=== PATIENT | female | born 1975 | race African-American/Black ===

== ENCOUNTER 2024-01-30 11:00 | Outpatient (AMB) | payer OTHER, SELFPAY ==
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
[2024-01-30 11:08] VITALS: BP 122/84; PULSE 85; O2SAT 98; BMI 21.7
== END 2024-01-30 12:23 | disposition home or self-care (01) ==
PROVIDERS: PCP Internal Medicine; Visit Provider Nurse Practitioner Family
DX: R51.9 Headache, unspecified (principal); G43.829 Menstrual migraine, not intractable, without status migrainosus; G43.109 Migraine with aura, not intractable, without status migrainosus
CPT/HCPCS: 99204

== ENCOUNTER → 2024-01-30 11:00 | Outpatient (BNVA) | payer OTHER, SELFPAY | PROVIDERS: PCP Internal Medicine; Visit Provider Nurse Practitioner Family ==

== ENCOUNTER 2024-03-18 13:29 | Outpatient (REF) | payer OTHER, SELFPAY ==
--- NOTE | ~2024-03-18 | MR_ITS ---
EXAMINATION: MR BRAIN WITHOUT CONTRAST CLINICAL INFORMATION: Headache. COMPARISON: None TECHNIQUE: Multiplanar multisequence MR imaging of the brain was obtained without intravenous contrast. FINDINGS: There is no acute infarct on diffusion-weighted imaging. There is no intracranial hemorrhage on iron-sensitive imaging. No extra-axial collection or mass effect/herniation. There are multiple scattered small foci of T2/FLAIR hyperintense signal in the supratentorial white matter, predominantly involving the frontal lobes. No hydrocephalus. The ventricles are normal in morphology and size. The major flow voids at the skull base are preserved. The midline structures are normal. The cerebellar tonsils are normally positioned. The craniocervical junction is normal. Marrow signal is within normal limits. The visualized soft tissues are without significant abnormality. No signal abnormality within the paranasal sinuses or within the mastoid air cells. MR/MR head/brain wo con IMPRESSION: Multiple scattered small foci of T2/FLAIR hyperintense signal in the supratentorial and predominantly bifrontal white matter are nonspecific but can be seen in the setting of migraine. Otherwise unremarkable noncontrast MRI of the brain. Electronically signed by: Darnell Rios MD 04/01/2024 07:00 PM EDT
== END 2024-03-18 13:30 | disposition home or self-care (01) ==
LOC: HO.MRI 13:29
PROVIDERS: Visit Provider Nurse Practitioner Family
DX: R51.9 Headache, unspecified (principal)
CPT/HCPCS: 70551

== ENCOUNTER 2025-07-13 11:59 | Outpatient (AMB) | payer OTHER, SELFPAY ==
--- OUTSIDE RECORDS SUMMARY | 2024-07-30 06:00 | XMS_ITS ---
Author Organization [facility] [address] Address [address] [place] [address] Care Team Providers Care Mail Clerk Name Role Phone GENARO CERVANTES Unavailable [phone] Encounters Encounter Location Date Provider Diagnosis [facility] [address] [address] 07/30/2024 GENARO CERVANTES Plan Of Treatment No Information Progress Notes * Crystal MUNOZDOB:1975 (49 yo F)Acc No.[id number]:07/30/2024 Progress Notes Patient: Ruben Vanessaye Provider: Isidoro CERVANTES PA-C :1975 A ge:48 Y S ex:Female Date:07/30/2024 Address:[address] [place] [address], [id number] Care Plan Details* * Electronic signature of DULCE CERVANTES PA-C on 07/13/2025 at 04:02 PM EST Sign off status: Pending * Provider: Isidoro CERVANTES PA-C Date: 0 07/30/2024 Generated for Yenny cifuentes/Kimber/eTransmitting on: 1 04:02 PM EST
--- OUTSIDE RECORDS SUMMARY | 2024-11-24 06:00 | XMS_ITS ---
Author Organization [facility] [address] Address [address] [place] [address] Care Team Providers Care Ambulance Driver Paramedic Name Role Phone GENARO CERVANTES Unavailable [phone] REASON FOR VISIT potassium & migraines Encounters Encounter Location Date Provider Diagnosis [facility] [address] [address] 11/24/2024 GENARO CERVANTES Plan Of Treatment No Information Progress Notes * Crystal MUNOZDOB:1975 (49 yo F)Acc No.[id number]:11/24/2024 Progress Notes Patient: Ruben Vanessaye Provider: Isidoro CERVANTES PA-C :1975 A ge:49 Y S ex:Female Date:11/24/2024 Address:[address] [place] [address], [id number] Subjective: * Chief Complaints: * P otassium & migraines Care Plan Details* * Electronic signature of DULCE CERVANTES PA-C on 07/13/2025 at 04:02 PM EST Sign off status: Pending * Provider: Isidoro CERVANTES PA-C Date: 0 11/24/2024 Generated for Yenny cifuentes/Kimber/eTyessicasmitting on: 1 04:02 PM EST
--- OUTSIDE RECORDS SUMMARY | 2025-03-17 06:00 | XMS_ITS ---
Author Organization [facility] [address] Address [address] [place] [address] Care Team Providers Care Building Appraiser Name Role Phone GENARO CERVANTES Unavailable [phone] REASON FOR VISIT routine follow up /labs Encounters Encounter Location Date Provider Diagnosis [facility] [address] [address] 03/17/2025 GENARO CERVANTES Plan Of Treatment No Information Progress Notes * Crystal MUNOZDOB:1975 (49 yo F)Acc No.[id number]:03/17/2025 Progress Notes Patient: Ruben Vanessaye Provider: Isidoro CERVANTES PA-C :1975 A ge:49 Y S ex:Female Date:03/17/2025 Address:[address] [place] [address], [id number] Subjective: * Chief Complaints: * R outine follow up /labs Care Plan Details* * Electronic signature of DULCE CERVANTES PA-C on 07/13/2025 at 04:02 PM EST Sign off status: Pending * Provider: Isidoro CERVANTES PA-C Date: 0 03/17/2025 Generated for Yenny cifuentes/Kimber/Damian on: 1 04:02 PM EST
--- OUTSIDE RECORDS SUMMARY | 2025-07-13 11:00 | XMS_ITS | Encounter Summary ---
Author Organization [facility] Address [address] [place] [address] Care Team Providers Care Core Cutter Name Role Phone Brittanie Choudhary MD Primary Care Provider [phone] Reason for Visit * Reason Comments Injections Encounter Details Date Type Department Care Team (Latest Contact Info) Description 07/13/2025 11:00 AM EST Clinical Support Obst[facility]s [facility] [address] [place] [address] Surveillance for Depo-Provera contraception (Primary Dx) Social History Tobacco Use Types Packs/Day Years Used Date Smoking Tobacco: Never Smokeless Tobacco: Never Tobacco Cessation:Counseling Given: Not Answered Alcohol Use Standard Drinks/Week Comments No 0 (1 standard drink = 0.6 oz pur e alcohol) Housing Instability Answer Date Recorde d Are you worried that in the next 2 months you may not have stable housing? No 07/24/2024 Food Access & Nutrition Answer Date Rec orded Do you have access to a vari ety of food including fruits and vegetables? Yes 07/24/2024 Access to Healthcare Answer Date Record ed Within the last 3 months, ho w many times did you visit the emergency department for your medical care? 0 07/24/2024 Health Literacy Answer Date Recorded How often do you need to hav e someone help you when you read instructions, pamphlets, or other written material from your doctor or pharmacy? Never 07/24/2024 Caregiver: How often do you need to have someone help you when you read instructions, pamphlets, or other written material from your doctor or pharmacy? Not on file 07/24/2024 Financial Risk Answer Date Recorded How hard is it for you to pa y for the very basics like food, housing, medical care, and air conditioning / heating? Hard 07/24/2024 Transportation Answer Date Recorded Has the lack of transportati on kept you from meetings, work, or from getting things needed for daily living? No Has the lack of transportati on kept you from medical appointments or from getting medications? No 07/24/2024 Social Isolation Answer Date Recorded How often do you feel lonely or isolated from ose around you? Always 07/24/2024 Food Risk Answer Date Recorded Within the past 12 months we worried whether our food would run out before we got money to buy more. Never true 07/24/2024 Within the past 12 months th e food we bought just didn't last and we didn't have money to get more. Never true 07/24/2024 Dependent Care Answer Date Recorded Do you need help finding or paying for care for your loved ones. For example, child psychology teacher or elderly care for an older adult? No 07/24/2024 Education Answer Date Recorded Do you think completing more education or training, like finishing a GED, going to college, or learning a trade, would be helpful for you? No 07/24/2024 Employment and Income Answer Date Recor ded During the last four weeks, have you been actively looking for work? No 07/24/2024 Living Situation Answer Date Recorded What is your living situation? Unrecognized valu e 07/24/2024 Comments No Sex and Gender Information Value Date Recorded Sex Assigned at Not on file Legal Sex Female 12:19 PM EST Gender Identity Female 05/29/2024 1:11 AM EST Sexual Orientation Straight 05/29/2024 1: 11 AM EST documented as of this encounter Last Filed Vital Signs Vital Sign Reading Time Taken Comments Blood Pressure 146/80 07/13/2025 11:07 AM EST Pulse 89 07/13/2025 11:07 AM EST Temperature - - Respiratory Rate - - Oxygen Saturation - - Inhaled Oxygen Concentration - - Weight 62.1 kg (137 lb) 07/13/2025 11:07 AM EST Height - - Body Mass Index 20.83 04/23/2025 11:26 AM EDT documented in this encounter Progress Notes * Naz Mensah MA - 07/13/2025 11:00 AM EST Patient received last Depo injection on 04/23/2025. She does not have any concerns today regarding depo use. Depo-Provera administered in lt deltoid. See Immunization section. Medication is patient supplied. Patient was instructed to remain in the department for 20 minutes and report any adverse effects. She was instructed when to return for the next visit. Please review MAR report for details. documented in this encounter Plan of Treatment Upcoming Encounters Date Type Department Care Team (Late st Contact Info) Description 09/28/2025 11:00 AM EDT Clinical Support [facility] [address] [facility] [place] [address] documented as of this encounter Visit Diagnoses Diagnosis Surveillance for Depo-Provera contraception- Primary Surveillance of other previously prescribed contraceptive method documented in this encounter Administered Medications Active Administered Medications - up to 3 most recent administrations Medication Order MAR Action Action Date Dose Rate Site medroxyPROGESTERone (DEPO-PROVERA) injection 150 mg 150 mg, intramuscular, Every 3 months, First dose on Sat07/13/25 at 1145, For 4 doses, SHAKE WELL Hazardous Medication - Double pair of ASTM standard D6978 certified gloves - Eye/face protection if liquid that could splash - Staff at reproductive risk must also wear a hazardous gownIndications:Surveillance for Depo-Provera contraception Given 07/13/2025 11:15 AM EST 150 mg Left Deltoid documented in this encounter Orders Medications Ordered That Ciaran ht Not Have Been Administered Count Last Ordered Date First Ordered Date medroxyPROGESTERone (DEPO-IA OVERA) injection 150 mg 1 07/13/2025 documented in this encounter Additional Health Concerns Assessment Noted Time PHQ-9 Depression Total Score: 0 07/09/20 25 10:39 AM EST documented as of this encounter Care Teams Core Cutter Relationship Specialty Start Date End Date Brittanie Choudhary MD [address] [place] [id number] PCP - General 11/27/22 documented as of this encounter
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
[2025-07-13 13:10] VITALS: BP 122/86; PULSE 82; O2SAT 99; BMI 21.1
--- OUTSIDE RECORDS SUMMARY | 2025-07-13 16:02 | XMS_ITS | Clinical Summary ---
Author Organization [facility] [address] [facility] Address [address] [place] [address] Phone Care Team Providers Care Bean Picker Name Role Phone Brittanie Choudhary MD Primary Care Provider [phone] Allergies No known active allergies Medications SUMAtriptan (Imitrex) 50 mg tablet Take 1 Tablet by mouth daily as needed for Migraine. May repeat dose once after 2 hours, if needed. 4 Active triamcinolone (KENALOG) 0.1 % cream APPLY A SMALL AMOUNT TOPICALLY TO AFFECTED AREA TWO TIMES A DAY 4 Active atorvastatin (LIPITOR) 10 mg tablet Take 1 tablet (10 mg total) by mouth 1 (one) time each day. 4 Active amLODIPine (NORVASC) 5 mg tablet Take 1 tablet (5 mg total) by mouth 1 (one) time each day. 4 Active mometasone-form oterol (Dulera) 100-5 mcg/actuation inhaler Inhale 2 Puffs into the lungs 2 times daily. 1 inhaler and 11 refills 4 Active mometasone-form oterol (Dulera) 100-5 mcg/actuation inhaler Inhale 2 Puffs into the lungs 2 times daily. 3 inhalers and 3 refills 4 Active benzonatate (TESSALON) 100 mg capsule Take 1 Capsule by mouth 3 times daily as needed for Cough. 4 Active rizatriptan (MAXALT) 10 mg tablet 4 Active fluticasone furoate-vilante roL (BREO ELLIPTA) 100-25 mcg/dose inhaler Inhale 1 Puff into the lungs daily. 4 Active amitriptyline (ELAVIL) 25 mg tablet Take 1 Tablet by mouth at bedtime. 4 Active ondansetron (ZOFRAN) 4 mg tablet Take 1 Tablet by mouth every 12 hours as needed for Nausea. 4 Active famotidine (PEPCID) 20 mg tablet Take 1 tablet (20 mg total) by mouth 2 (two) times a day. 4 Active ipratropium (ATROVENT) 42 mcg (0.06 %) nasal spray 2 Sprays by Nasal route 4 times daily. 4 Active fluticasone propionate (FLONASE) 50 mcg/actuation nasal spray SPRAY 1 SPRAY IN EACH NOSTRIL TWICE DAILY. 3 Active diclofenac (VOLTAREN) 1 % topical gel 3 Active chlorzoxazone (PARAFON FORTE) 250 mg tablet 3 Active budesonide-form oteroL (SYMBICORT) 80-4.5 mcg/actuation inhaler Inhale 2 puffs by mouth 2 (two) times a day. Rinse mouth with water after use to reduce aftertaste and incidence of candidiasis. Do not swallow. 1 each 5 08/14/19 26 Active rimegepant (Nurtec) 75 mg dispersible tablet Dissolve 1 tablet (75 mg total) on top of the tongue every other day. Active albuterol HFA (PROAIR HFA ; PROVENTIL HFA ; VENTOLIN HFA) 90 mcg/actuation inhaler Inhale 2 puffs by mouth every 6 (six) hours if needed for wheezing. Active magnesium oxide (MAG-OX) 400 mg magnesium tablet Take 1 tablet (400 mg total) by mouth 1 (one) time each day. Active potassium chloride (KLOR-CON) 20 mEq packet 20 mEq at bedtime. Active medroxyPROGESTE Pk 150 mg/mL injection Inject 1 mL (150 mg total) into the shoulder, thigh, or buttocks every 3 (three) months. 1 mL 1 5 Active medroxyPROGESTE Pk 150 mg/mL injection Inject 1 mL (150 mg total) into the shoulder, thigh, or buttocks every 3 (three) months. 1 mL 1 5 06/26/20 25 Discontin ued([facility]) Hospital, Clinic, or Other Facility Administered Medication Ordered Dose Route Frequency Start Date End Date Status medroxyPROGESTERone (DEPO-PROVERA) injection 150 mgIndications:Surveill ance for Depo-Provera contraception 150 mg IM Every 3 months 07/13/2025 07/08/2026 Active Active Problems Problem Noted Date Diagnosed Date Elevated LDL cholesterol level 12/29/2024 Hypokalemia 12/29/2024 Primary hypertension 12/29/2024 Acne 06/08/2024 Migraines 06/08/2024 Sickle cell trait 06/08/2024 Dermatitis 06/07/2023 Other chest pain 03/01/2022 Overview (06/08/2024): Last Assessment & Plan: As I noted she has been having these sharp chest pains. They are never exertionally related and they never last more than 30 seconds. I do not think these are cardiac related. I did tell her she had any chest discomfort lasting over15 minutes to call 911. MUNIZ (dyspnea on exertion) 03/01/2022 Overview (06/08/2024): Last Assessment & Plan: She has been having shortness of breath now for the past year. The exact etiology is not clear. She did have a chest x-ray a year ago and at that time her lungs were unremarkable. She does not have any significant valvular heart disease. She did have an echocardiogram In April demonstrated the left ventricular chamber size was normal. There is mild concentric left ventricular hypertrophy. LVEF was 60 to 65% with normal diastolic function. She had no significant valvular heart disease. I do not think she has congestive heart failure or pulmonary embolism but I will check a BNP and a D-dimer. Other concern that this could be ischemic mediated and this is her anginal equivalent. Going to schedule for nuclear stress test. Abnormal EKG 02/27/2022 Positive PPD 03/23/2021 Mixed anxiety depressive disorder 06/22/2020 Allergic rhinitis 12/06/2018 Dislocation of clavicle, closed 05/05/2018 Overview (06/08/2024): 1998, when she was in [place] Encounters Date Type Department Care Team Description 07/13/2025 11:00 AM EST Clinical Support [facility] [address] [place] [id number] Surveillance for Depo-Provera contraception (Primary Dx) 04/23/2025 11:00 AM EDT Office Visit Obstetrics & Gynecology - [address] [address] Dayna Lam CNM Encounter for management and injection of depo-Provera (Primary Dx); Surveillance for Depo-Provera contraception from Last 3 Months Immunizations Immunization Administration Dates Next Due Influenza Quadravalent, MDCK , 0.5ml, with preservative (Flucelvax) 6mo and older 04/21/2018 Pfizer (ages 12 & older) Bivalent, COVID-19 08/15 Pfizer SARS-CoV-2 COVID-19, mRNA, LNP-S, preservative free 01/01/2021,12/17/2020 Tdap Tetanus diptheria acell ular pertussis (Boostrix; Adacel) 7yo and older 04/21/2018 Surgical History Surgery Date Site/Laterality Comments OTHER SURGICAL HISTORY PROCEDURE: DENIES PREVIOUS SURGERY Medical History Medical History Date Comments Sickle cell trait (CMS/HCC V24) DX:Sickle cell trait (HCC) Acne DX:Acne Migraines DX:Migraines Constipation DX:Constipation Abdominal bloating DX:Abdominal bloating Encounter for screening colonoscopy DX:Encounter for screening colonoscopy Primary hypertension 12/29/2024 Family History Medical History Relation Name Comments Depression Aunt No Known Problems Brother Heart failure Father No Known Problems Maternal Grandfather Coronary artery disease Maternal Grandmother Diabetes Maternal Grandmother Diabetes Mother Hypertension Mother No Known Problems Other No Known Problems Paternal Grandfather No Known Problems Paternal Grandmother No Known Problems Sister No Known Problems Uncle Blindness Neg Hx Breast cancer Neg Hx Cataracts Neg Hx Colon cancer Neg Hx Colon polyps Neg Hx Glaucoma Neg Hx Macular degeneration Neg Hx Ovarian cancer Neg Hx Pancreatic cancer Neg Hx Prostate cancer Neg Hx Strabismus Neg Hx Uterine cancer Neg Hx Relation Name Status Comments Aunt Brother Father Maternal Grandfather Maternal Grandmother Mother Alive Other Paternal Grandfather Paternal Grandmother Sister Uncle Social History Tobacco Use Types Packs/Day Years [...] do you feel lonely or isolated from th ose around you? Always 07/24/2024 Food Risk [...] for your loved ones. For example, child welfare consultant or elderly care for an older adult? [...] Orientation Straight 05/29/2024 1: 11 AM EST Obstetrics History Para Term AB IAB SAB Ectopic Multiple Livin g Live Births 1 1 1 0 0 0 1 1 Date Outcome GA Total Labor Labor/2nd/3rd Weight Sex Type Anes PTL Milena A1 A5 Name Clin 2000 Term M Vag-S pont Living Complications:None Last Filed Vital Signs Vital Sign Reading Time Taken Comments Blood Pressure 146/80 07/13/2025 11:07 AM EST Pulse 89 07/13/2025 11:07 AM EST Temperature 36.2 C (97.2 F) 08/14/2024 10:43 AM EST Respiratory Rate 14 12/31/2024 11:16 AM EDT Oxygen Saturation 99% 12/29/2024 10:18 AM EDT Inhaled Oxygen Concentration - - Weight 62.1 kg (137 lb) 07/13/2025 11:07 AM EST Height 172.7 cm (5' 8 ) 04/23/2025 11:26 AM EDT Body Mass Index 20.83 04/23/2025 11:26 AM EDT Plan of Treatment Upcoming Encounters Date Type Department Care Team (Late st Contact Info) Description 09/28/2025 11:00 AM EDT Clinical Support [facility]cology - [facility] [address] [place] [address] Health Maintenance Due Date Last Done Comments Colorectal Cancer Screening: Colonoscopy 1975 Hepatitis B Vaccines (1 of 3 - 19+ 3-dose series) 1995 Pneumococcal Vaccine: Pediatrics (0 to 5 Years) and At-Risk Patients (6 to 49 Years) (1 of 2 - PCV) 1995 Cervical Cancer Screening: HPV 08/14/2024 08/14/2019 Breast Cancer Screening 02/05/2025 02/05/2023 COVID-19 Vaccine ( - 2024-2 6 season) 2025 08/31/2021, 01/01/2021, 12/17/2020 Influenza Vaccine (#1) 2025 04/21/2018 Social Influencers of Health Screening 07/24/2025 07/24/2024 Hypertension/CHF/CAD Annual BMP Blood Test 12/17/2025 12/17/2024, 08/27/2024, 10/15/2023 DTaP,Tdap,and Td Vaccines (2 - Td or Tdap) 04/21/2028 04/21/2018 Cholesterol Screening (Lipid Panel) 08/27/2029 08/27/2024, 10/15/2023 RSV Immunization Adult Patients (1 - 1-dose 75+ series) 2051 HIV Screening Completed 04/21/2018 Hepatitis C Screening Completed 04/21/2018 Depression Screening Completed 07/09/2025, 10/15/2023 HIB Vaccines Aged Out No longer eligi ble based on patient's age to complete this topic HPV Vaccines Aged Out No longer eligi ble based on patient's age to complete this topic Hepatitis A Vaccines Aged Out No long er eligible based on patient's age to complete this topic IPV Vaccines Aged Out No longer eligi ble based on patient's age to complete this topic MMR Vaccines Aged Out No longer eligi ble based on patient's age to complete this topic Meningococcal ACWY Vaccine Aged Out N o longer eligible based on patient's age to complete this topic Meningococcal B Vaccine Aged Out No l onger eligible based on patient's age to complete this topic RSV Immunization Patients Under 20 months Aged Out No longer eligible b ased on patient's age to complete this topic Varicella Vaccines Aged Out No longer eligible based on patient's age to complete this topic Procedures Procedure Name Priority Date/Time Associated Diagnosis Comments COMPREHENSIVE METABOLIC PANEL Routine 12/17/2024 11:51 AM EDT Hypopotassemia LIPID PANEL WITH REFLEX TO DIRECT LDL Routine 08/27/2024 10:26 AM EST Routine general medical examination at a [facility] facility Screening for lipoid disorders Screening for diabetes mellitus Screening for thyroid disorder Avitaminosis D DEPRESSION SCREENING Routine 10/15/2023 ANTHONY SCREENING DIGITAL Routine 02/05/2023 2:58 PM EDT Encounter for screening mammogram for malignant neoplasm of breast HPV Routine 08/14/2019 HEPATITIS C SCREENING Routine 04/21/2018 HIV SCREENING Routine 04/21/2018 from Last 3 Months or Most Recently Relevant to Health Maintenance Results * Comprehensive metabolic panel (12/17/2024 11:51 AM EDT) Sodium 140 133 - 145 mmol/L LAB CHEMISTRY METHOD 12/17/2024 12:56 PM [facility] Potassium 3.6 3.5 - 5.5 mmol/L LAB CHEMISTRY METHOD 12/17/2024 12:56 PM [facility] Chloride 110 96 - 110 mmol/L LAB CHEMISTRY METHOD 12/17/2024 12:56 PM [facility] CO2 24 21 - 32 mmol/L LAB CHEMISTRY METHOD 12/17/2024 12:56 PM [facility] Anion Gap 6 3 - 11 LAB CHEMISTRY METHOD 12/17/2024 12:56 PM [facility] Glucose 83 70 - 100 mg/dL LAB CHEMISTRY METHOD 12/17/2024 12:56 PM [facility] BUN 7 5 - 25 mg/dL LAB CHEMISTRY METHOD 12/17/2024 12:56 PM [facility] Creatinine 0.84 0.50 - 1.10 mg/dL LAB CHEMISTRY METHOD 12/17/2024 12:56 PM [facility] eGFR 86 >=60 mL/min/1. 73m2 LAB CHEMISTRY METHOD 12/17/2024 12:56 PM EDT [facility] Comment:Calculation based on the Chronic Kidney Disease Epidemiology Collaboration (CKD-EPI) equation refit without adjustment for race. BUN/Creatinine Ratio 8.3 LAB CHEMISTRY METHOD 12/17/2024 12:56 PM [facility] Calcium 8.9 8.5 - 10.5 mg/dL LAB CHEMISTRY METHOD 12/17/2024 12:56 PM [facility] AST (SGOT) 18 10 - 42 unit/L LAB CHEMISTRY METHOD 12/17/2024 12:56 PM [facility] ALT (SGPT) 22 10 - 60 unit/L LAB CHEMISTRY METHOD 12/17/2024 12:56 PM [facility] Alkaline Phosphatase 89 42 - 121 unit/L LAB CHEMISTRY METHOD 12/17/2024 12:56 PM [facility] Total Protein 6.6 6.0 - 8.0 g/dL LAB CHEMISTRY METHOD 12/17/2024 12:56 PM [facility] Albumin 3.9 3.2 - 5.0 g/dL LAB CHEMISTRY METHOD 12/17/2024 12:56 PM [facility] Total Bilirubin 0.6 0.0 - 1.4 mg/dL LAB CHEMISTRY METHOD 12/17/2024 12:56 PM [facility] Blood Venous blood specimen / Unknown Venipuncture / Unknown 12/17/2024 11:51 AM EDT 12/17/2024 12:00 PM EDT us Tiana FRANCO LAB BLOOD ORDERABLES Fin al Result [facility] [address] [place] [address], * (ABNORMAL) Lipid panel with reflex to direct LDL (08/27/2024 10:26 AM EST) Cholesterol 197 0 - 200 mg/dL LAB CHEMISTRY METHOD 08/27/2024 12:55 PM EST [facility] Triglycerides 55 0 - 150 mg/dL LAB CHEMISTRY METHOD 08/27/2024 12:55 PM [facility] HDL 45 >=40 mg/dL LAB CHEMISTRY METHOD 08/27/2024 12:55 PM [facility] LDL Calculated 141(H) 0 - 100 mg/dL LAB CHEMISTRY METHOD 08/27/2024 12:55 PM [facility] VLDL Cholesterol Kevin 11 mg/dL LAB CHEMISTRY METHOD 08/27/2024 12:55 PM [facility] Non HDL Chol. (LDL+VLDL) 152(H) <145 mg/dL LAB CHEMISTRY METHOD 08/27/2024 12:55 PM [facility] Chol/HDL Ratio 4.4 0.0 - 4.4 LAB CHEMISTRY METHOD 08/27/2024 12:55 PM [facility] Blood Venous blood specimen / Unknown Venipuncture / Unknown 08/27/2024 10:26 AM EST 08/27/2024 12:12 PM EST Tiana FRANCO LAB BLOOD ORDERABLES Fin al Result [facility] [address] [place] [address], * Depression Screening (10/15/2023) Depression Screening abstracted Historical Provider HEALTH MAINTENANCE Final Result * ANTHONY SCREENING DIGITAL (02/05/2023 2:58 PM EDT) Anatomical Region Laterality Modality Mammography 02/05/2023 12:4 8 PM EDT Narrative 02/05/2023 2:58 PM EDT [facility] Diagnostic Imaging Department [address] [place] [address] Patient: GIORGI MUNOZ /Age/Sex: 1975 - 47 - F Unit#: [id number] Location/Status: SPDIMAM/REG CLI Mnemonic/Ordering Site: [facility] Ordering Physician: SURYA DUVAL CNM Anthony Screening Digital - 02/05/23 - [id number] Report Status:Signed EXAM: [facility] Screening Digital EXAM DATE AND TIME: 02/05/2023 1:55 PM HISTORY: Baseline screening mammogram COMPARISON: None TECHNIQUE: Bilateral digital breast tomosynthesis was performed in the CC and MLO projections. Computer aided detection with EmbedStore 3D 3.1 was employed. TISSUE DENSITY: b. There are scattered areas of fibroglandular density. FINDINGS: Cluster of microcalcifications in the right breast in the anterior one third of the breast at approximately 1 o'clock spanning approximately 5 mm. IMPRESSION: Cluster of microcalcifications in the right breast in the anterior one third of the breast at approximately 1 o'clock spanning approximately 5 mm. BI-RADS: Category 0: Incomplete - Need Additional Imaging Evaluation RECOMMENDATION(S): Special mammographic view(s) needed. Diagnostic right-sided mammogram with magnification views. [id number], [id number] Dictating Physician: MARIETTA MOISE MD Electronically Signed by: MARIETTA MOISE MD Dic Date/Time: 02/05/23 1446 Sign date/Time: 02/05/23 1458 Procedure Note Marietta Moies MD - 08/20/2023 [facility] Diagnostic Imaging Department [address] [place] [address] Patient: GIORGI MUNOZ /Age/Sex: 1975 - 47 - F Unit#: [id number] Location/Status: SPDIMAM/REG CLI Mnemonic/Ordering Site: [facility] Ordering Physician: SURYA DUVAL CNM [facility] Screening Digital - 02/05/23 - [id number] Report Status:Signed EXAM: [facility] Screening Digital EXAM DATE AND TIME: 02/05/2023 1:55 PM HISTORY: Baseline screening mammogram COMPARISON: None TECHNIQUE: Bilateral digital breast tomosynthesis was performed in the CCand MLO projections. Computer aided detection with EmbedStore 3D 3.1was employed. TISSUE DENSITY: b. There are scattered areas of fibroglandular density. FINDINGS: Cluster of microcalcifications in the right breast in the anterior onethird of the breast at approximately 1 o'clock spanning approximately 5 mm. IMPRESSION: Cluster of microcalcifications in the right breast in the anterior onethird of the breast at approximately 1 o'clock spanning approximately 5 mm. BI-RADS: Category 0: Incomplete - Need Additional Imaging Evaluation RECOMMENDATION(S): Special mammographic view(s) needed. Diagnostic right-sided mammogramwith magnification views. [id number], [id number] Dictating Physician: MARIETTA MOISE MD Electronically Signed by: MARIETTA MOISE MD Dic Date/Time: 02/05/23 1448 Sign date/Time: 02/05/23 3825 us Barla R Duval CNM IMG BI PROCEDURES Final Resul t * Cervical Cancer Screening: HPV (08/14/2019) Cervical Cancer Screening: HPV abstracted, negative Historical Provider HEALTH MAINTENANCE Final Result * HIV Screening (04/21/2018) Pathologist [facility] HIV Screening abstracted Historical Provider HEALTH MAINTENANCE Final Result * Hepatitis C Screening (04/21/2018) Hepatitis C Screening abstracted Historical Provider HEALTH MAINTENANCE Final Result from Last 3 Months or Most Recently Relevant to Health Maintenance Insurance [employer] Care Teams Bean Picker Relationship Specialty Start Date End Date Brittanie Choudhary MD [address] [place] [id number] PCP - General 11/27/22
--- OUTSIDE RECORDS SUMMARY | 2025-07-13 16:02 | XMS_ITS ---
Author Name [facility] Organization Unknown Care Team Organization Name Specialty Phone Email Start Date End Da te [facility] QUIN RAMIREZ Primary Care 10/16/2022 03/02/20 [facility] Brenda Kaplan Primary Care 05/22/2022 03/02/20 24
--- OUTSIDE RECORDS SUMMARY | 2025-07-13 16:02 | XMS_ITS | Encounter Summary ---
Author Organization [facility] Address [address] [place] [address] Phone Care Team Providers Care Transactional Attorney Name Role Phone Brittanie Hoover Md Primary Care Provider [phone] [phone] Encounter Details Date Type Department Care Team (Late st Contact Info) Description 12/12/2023 Documentation Only [facility], [address] [place] [address] Lillian Cannon [place] [address] [place] [phone] Social History Tobacco Use Types Packs/Day Years Used Date Smoking Tobacco: Never Assessed Comments Unknown Sex and Gender Information Value Date Recorded Sex Assigned at Not on file Legal Sex Female 9:45 AM EDT Gender Identity Not on file Sexual Orientation Not on file documented as of this encounter Plan of Treatment Not on file documented as of this encounter Visit Diagnoses Not on filedocumented in this encounter Care Teams Transactional Attorney Relationship Specialty Start Date End Date Brittanie Hoover Md [address] [place] [address] PCP - General 12/12/23 documented as of this encounter
--- OUTSIDE RECORDS SUMMARY | 2025-07-13 16:03 | XMS_ITS | Clinical Summary ---
Author Organization [facility], Address [address] [place] [address] [place] [address] Phone Care Team Providers Care Long Wall Shear Operator Name Role Phone Brittanie Hoover Md Primary Care Provider +1 [phone] Social History Tobacco Use Types Packs/Day Years Used Date Smoking Tobacco: Never Assessed Comments Unknown Sex and Gender Information Value Date Recorded Sex Assigned at Not on file Legal Sex Female 9:45 AM EDT Gender Identity Not on file Sexual Orientation Not on file Plan of Treatment Health Maintenance Due Date Last Done Comments Hepatitis B Vaccine (1 of 3 - 19+ 3-dose series) 08/25 Pneumococcal Vaccine: Peds ( 0 to 5 Years) and At-Risk Patients (6 to 49 Years) (1 of 2 - PCV) 1995 Influenza Vaccine (#1) 2025 04/21/2018 Insurance [facility] Medicaid Care Teams Long Wall Shear Operator Relationship Specialty Start Date End Date Brittanie Hoover Md [address] [place] [id number] PCP - General 12/12/23
--- OUTSIDE RECORDS SUMMARY | 2025-07-13 16:03 | XMS_ITS | Clinical Summary ---
Author Organization [facility] Prior to 12/12/24 Address [address] [place] [address] Care Team Providers Care Community Development Technician Name Role Phone Aleksandra Berg MD Primary Care Provider Unavailabl e Allergies No known active allergies Medications Medication Sig Dispensed Refills Start Date End Date Status lisinopril (PRINIVIL,ZESTRIL) tablet 10 mg 1 11/06/2018 Active medroxyPROGESTERone acetate 150 MG/ML injection Inject 150 mg into the muscle. 0 05/09/2018 Active metoclopramide (REGLAN) tablet 5 mg TK 1 T PO WITH IMMITREX FOR MIGRAINE 0 11/06/2018 Active amLODIPine (NORVASC) tablet 2.5 mg TK 1 TS PO ONCE DAILY 1 11/27/2018 Active SUMAtriptan (IMITREX) 50 MG tablet TK 1 T PO PRN MAY REPEAT DOSE ONCE AFTER TWO HOURS 0 11/27/2018 Active Family History Medical History Relation Name Comments Hypertension Mother Relation Name Status Comments Mother Social History Tobacco Use Types Packs/Day Years Used Date Smoking Tobacco: Never Smokeless Tobacco: Never Alcohol Use Standard Drinks/Week Comments No 0 (1 standard drink = 0.6 oz pur e alcohol) Sex and Gender Information Value Date Recorded Sex Assigned at Not on file Gender Identity Not on file Sexual Orientation Not on file Last Filed Vital Signs Vital Sign Reading Time Taken Comments Blood Pressure - - Pulse - - Temperature - - Respiratory Rate - - Oxygen Saturation - - Inhaled Oxygen Concentration - - Weight 56.7 kg (125 lb) 12/15/2018 9:09 AM EDT Height 172.7 cm (5' 8 ) 12/15/2018 9:09 AM EDT Body Mass Index 19.01 12/15/2018 9:09 AM EDT Plan of Treatment Health Maintenance Due Date Last Done Comments Hepatitis B Vaccines (1 of 3 - 3-dose series) 1975 Hepatitis C Screening 1976 COVID-19 Vaccine (#1) 02/22/1977 Depression Screening 1988 Preventative Health Evaluation 1994 Cervical Cancer Screening (P ap Smear) 1997 Colon Cancer Screening (Colonoscopy) 2021 Influenza Vaccine (#1) 2025 04/21/2018 DTap / Tdap / Td (2 - Td or Tdap) 04/21/2028 018 Pneumococcal Vaccine Aged Out No long er eligible based on patient's age to complete this topic RSV Ped < 20 months Aged Out No longe r eligible based on patient's age to complete this topic Care Teams Community Development Technician Relationship Specialty Start Date End Date Aleksandra Berg MD PCP - General Internal Medicine 11/11/18
--- OUTSIDE RECORDS SUMMARY | 2025-07-13 16:03 | XMS_ITS | Patient Health Record ---
Author Organization [facility] [address] Address [address] [place] [address] Care Team Providers Care Electrician Station Assistant Name Role Phone GENARO CERVANTES Unavailable [phone] Allergies No Known Allergies Results Component Value Reference Range Flag Notes CBC WITH AUTO DIFFERENTIAL Reviewed date:08/27/2024 04:21:54 PM Interpretation: Performing Lab: Notes/Report: WBC 3.7 4.8-10.8 K/mcL L RBC 4.20 3.80-4.80 M/mcL Hemoglobin 13.3 11.5-16.0 g/dL Hematocrit 38.3 35.0-47.0 % MCV 91.4 79.0-98.0 FL MCH 31.7 27.0-32.0 pcg MCHC 34.7 32.0-37.0 g/dL RDW 12.3 11.0-15.0 % Platelets 260 130-400 K/mcL MPV 10.6 7.0-11.0 FL NRBC 0.0 <1.0 % NRBC Absolute 0.00 <0.10 K/mcL Neutrophils Relative 55.3 Lymphocytes Relative 33.5 Monocytes Relative 8.8 Eosinophils Relative 1.6 Basophils Relative 0.5 Immature Granulocytes Relative 0.3 Neutrophils Absolute 2.06 1.50-7.00 K/mcL Lymphocytes Absolute 1.25 1.00-5.00 K/mcL Monocytes Absolute 0.33 0.20-1.00 K/mcL Eosinophils Absolute 0.06 0.00-0.50 K/mcL Basophils Absolute 0.02 0.00-0.20 K/mcL Immature Granulocytes Absolute 0.01 0.00-0.03 K/mcL LIPID PANEL WITH REFLEX TO D IRECT LDL Reviewed date:08/27/2024 04:21:42 PM Interpretation: Performing Lab: Notes/Report: Cholesterol 197 0-200 mg/dL Triglycerides 55 0-150 mg/dL HDL 45 >=40 mg/dL LDL Calculated 141 0-100 mg/dL H VLDL Cholesterol Kevin 11 Non HDL Chol. (LDL+VLDL) 152 <145 mg/dL H Chol/HDL Ratio 4.4 0.0-4.4 VITAMIN D 25 HYDROXY Reviewed date:08/27/2024 04:23:37 PM Interpretation: Performing Lab: Notes/Report: Vit D, 25-Hydroxy 14.6 30.0-80.0 ng/mL L MAGNESIUM Reviewed date:08/27/2024 04:22:00 PM Interpretation: Performing Lab: Notes/Report: Magnesium 2.2 1.9-2.6 mg/dL THYROID STIMULATING HORMONE WITH REFLEX TO FREE T4 AND FREE T3 Reviewed date:08/27/2024 04:21:37 PM Interpretation: Performing Lab: Notes/Report: TSH 0.56 0.40-4.00 mcIU/mL HEMOGLOBIN A1C Reviewed date:08/27/2024 04:21:32 PM Interpretation: Performing Lab: Notes/Report: Hemoglobin A1C 5.3 <6.5 % Mean Bld Glu Estim. 105 IRON AND TIBC Reviewed date:08/27/2024 04:21:46 PM Interpretation: Performing Lab: Notes/Report: Iron 141 40-150 mcg/dL TIBC 372 250-450 mcg/dL Iron Saturation 38 15-50 % FERRITIN Reviewed date:08/27/2024 04:21:49 PM Interpretation: Performing Lab: Notes/Report: Ferritin 69 8-252 ng/mL SEDIMENTATION RATE Reviewed date:08/27/2024 04:22:04 PM Interpretation: Performing Lab: Notes/Report: Sed Rate 6 0-20 mm/hr C REACTIVE PROTEIN, HIGH SEN SITIVITY Reviewed date:08/27/2024 04:21:57 PM Interpretation: Performing Lab: Notes/Report: CRP, High Sensitivity 0.19 Cardio CRP Relative Risk Categories Low <1.0 mg/L Average 1.0 - 3.0 mg/L High >3.0 mg/L Levels >10.0 mg/L should be ignored and repeated when the patient is stable and infection or inflammation is ruled out. HRT (estrogens) consistently increase cardio CRP levels. Risk estimates for women on HRT may need to be calibrated downward. COMPREHENSIVE METABOLIC PANE L Reviewed date:08/27/2024 04:21:28 PM Interpretation: Performing Lab: Notes/Report: Sodium 142 133-145 mmol/L Potassium 2.9 3.5-5.5 mmol/L LL Chloride 107 96-110 mmol/L CO2 26 21-32 mmol/L Anion Gap 9 3-11 Glucose 92 70-100 mg/dL BUN 5 5-25 mg/dL Creatinine 0.83 0.50-1.10 mg/dL eGFR 87 >=60 mL/min/1.73m2 Calcul ation based on the Chronic Kidney Disease Epidemiology Collaboration (CKD-EPI) equation refit without adjustment for race. BUN/Creatinine Ratio 6.0 Calcium 9.5 8.5-10.5 mg/dL AST (SGOT) 17 10-42 unit/L ALT (SGPT) 24 10-60 unit/L Alkaline Phosphatase 86 42-121 unit/L Total Protein 7.5 6.0-8.0 g/dL Albumin 4.4 3.2-5.0 g/dL Total Bilirubin 1.1 0.0-1.4 mg/dL MALIK IFA WITH TITER AND LARRY RN Reviewed date:08/28/2024 02:25:49 PM Interpretation: Performing Lab: Notes/Report: MALIK Negative Negative COMPREHENSIVE METABOLIC PANE L Reviewed date:12/17/2024 02:11:47 PM Interpretation: Performing Lab: Notes/Report: Sodium 140 133-145 mmol/L Potassium 3.6 3.5-5.5 mmol/L Chloride 110 96-110 mmol/L CO2 24 21-32 mmol/L Anion Gap 6 3-11 Glucose 83 70-100 mg/dL BUN 7 5-25 mg/dL Creatinine 0.84 0.50-1.10 mg/dL eGFR 86 >=60 mL/min/1.73m2 Calcul ation based on the Chronic Kidney Disease Epidemiology Collaboration (CKD-EPI) equation refit without adjustment for race. BUN/Creatinine Ratio 8.3 Calcium 8.9 8.5-10.5 mg/dL AST (SGOT) 18 10-42 unit/L ALT (SGPT) 22 10-60 unit/L Alkaline Phosphatase 89 42-121 unit/L Total Protein 6.6 6.0-8.0 g/dL Albumin 3.9 3.2-5.0 g/dL Total Bilirubin 0.6 0.0-1.4 mg/dL POTASSIUM Reviewed date:10/15/2024 09:39:07 AM Interpretation: Performing Lab: Notes/Report: Potassium 3.7 3.5-5.5 mmol/L Reason For Referral Reason PVC; dyspnea on exer tion Diagnosis 1 Dyspnea on exertion (R06.09) Referral Organization [facility] [address] Referring Provider First Name GENARO Referring Provider Last Name HOFFMAN Referring Provider Speciality Preventive Medicine Referred Provider Specialty Cardiology General Notes [address] [place] [address] Dr. Powers 410, (p) [phone], (f) [phone] Clinical Notes Shanita Hall 01:55:24 PM > referral faxed with Flaco montaño Redena 02/02/2025 01:16:31 PM > Had an appt on 12/[address] Carreon Referral Priority Routine Reason Esmer; Dr Esposito; dy spnea Diagnosis 1 Dyspnea on exertion (R06.09) Referral Organization [facility] [address] Referring Provider First Name GENARO Referring Provider Last Name HOFFMAN Referring Provider Speciality Preventive Medicine Referred Provider Specialty Pulmonology General Notes [address] [place] [address] Manuel. 2 00, (p) [phone], (f) [phone] Clinical Notes Shanita Hall 02:09:27 PM > referral faxed with attachmentsFlaco Redena 02/25/2025 02:29:09 PM >refaxed to [phone] Redena 03/23/2025 03:35:47 PM > Seen on 08/14/24 Referral Priority Routine Reason Neurology Diagnosis 1 Acute migraine (G43. 909) Referral Organization [facility] [address] Referring Provider First Name GENARO Referring Provider Last Name HOFFMAN Referring Provider Speciality Preventive Medicine Referred Provider Vandana Mullen Referred Provider Specialty Neurology General Notes Lainey Sandhu 025 01:19:05 PM > Referral faxed over to Dr. Mullen PPankaj [phone] F. [phone] Referral Priority Routine Medications Medication SIG (Take, Route, Frequency, Duration) Notes Start Date End Date Status Magnesium Oxide 400 MG Tablet 1 tablet a s needed Orally Once a day Active Fluticasone Propionate 50 MCG/ACT Suspension 1 spray in each nostril Nasally Twice a day; Duration: 30 days 10/27/2024 Not-Taking SUMAtriptan Succinate 50 MG Tablet 1 tablet as needed, may take second dose at least 2 hours after first dose up to 4 tablets per day as needed; Duration: 90 days Active Nurtec [address] ONE TABLET ON THE TONGUE AND ALLOW TO DISSOLVE BY MOUTH EVERY OTHER DAY; Duration: 60 Active Atorvastatin Calcium 10 MG Tablet TAKE 1 TABLET DAILY Oral; Duration: 90 Days Active medroxyPROGESTERone Acetate 150 MG/ML Suspension INJECT 1 ML INTO THE MUSCLE EVERY 3 MONTHS Intramuscular; Duration: 90 days Active Albuterol Sulfate HFA 108 (9 0 Base) MCG/ACT Aerosol Solution Inhalation; Duration: 25 Days Active Ondansetron HCl 4 MG Tablet 1 tablet Orally every 8 hours; Duration: 10 days As needed for nausea 12/17/2024 Active Potassium Chloride ER 20 MEQ Tablet Extended Release 1 tablet with food Orally Once a day; Duration: 90 days Active Amitriptyline HCl 25 MG Tablet 1 tablet at bedtime Orally Once a day; Duration: 90 days Active amLODIPine Besylate 5 MG Tablet TAKE 1 TABLET DAILY Oral; Duration: 90 days Active Atorvastatin Calcium 10 MG Tablet 1 tablet Orally Once a day; Duration: 90 days 12/17/2024 Active Social History Section Notes: ETOH Use: Denies Tob Use: Denies Drug Use: Denies ETOH Use: Denies Tob Use: Denies Drug Use: Denies ETOH Use: Denies Tob Use: Denies Drug Use: Denies ETOH Use: Denies Tob Use: Denies Drug Use: Denies ETOH Use: Denies Tob Use: Denies Drug Use: Denies Problems Problem Type SNOMED Code ICD Code Onset Dates Problem Status W/U Status Risk Notes Problem Hypokalemia (19365647) Hypokalemia (E87.6) Active confirmed Problem Generalized anxiety disorder (40571635) Generalized anxiety disorder (F41.1) Active confirmed Problem Essential hypertension (99522702) Essential hypertension (I10) Active confirmed Problem Seasonal allergy (630131418) Seasonal allergies (J30.2) Active confirmed Problem Uncomplicated moderate persistent asthma (675202188) Moderate persistent asthma without complication (J45.40) Active confirmed Problem Sickle cell trait (00946198) Sickle cell trait (D57.3) Active confirmed Problem Inactive tuberculosis (finding) (73183405) History of latent tuberculosis (Z86.15) Active confirmed Problem Dyspnea on exertion (52168422) Dyspnea on exertion (R06.09) Active confirmed Problem Hyperlipidemia (90655502) Hyperlipidemia (E78.5) Active confirmed Problem Episodic migraine (724941756006683) Episodic migraine (G43.909) Active confirmed Vital Signs Heart Rate 83 /min 12/17/2024 Temperature 100.2 degrees Fahrenheit 09/08/2024 Oximetry 98 % 12/17/2024 Blood pressure diastolic 88 mm Hg 12/17/2024 Height 68 in 12/17/2024 Blood pressure systolic 120 mm Hg 12/17/2024 Weight 143.3 lbs 12/17/2024 BMI 21.79 kg/m2 12/17/2024 Encounters Encounter Location Date Provider Diagnosis [facility] [address] [address] 08/27/2024 GENARO CERVANTES Moderate persistent asthma without complication J45.40 ; Dyspnea on exertion R06.09 ; Essential hypertension I10 ; Hyperlipidemia, unspecified hyperlipidemia type E78.5 and Episodic migraine G43.909 [facility] [address] [address] 09/08/2024 GENARO CERVANTES Acute cough R05.1 ; Flu-like symptoms R68.89 and Hypokalemia E87.6 [facility] [address] [address] 10/27/2024 GENARO CERVANTES Moderate persistent asthma without complication J45.40 ; Dyspnea on exertion R06.09 ; Essential hypertension I10 ; Hyperlipidemia, unspecified hyperlipidemia type E78.5 ; Episodic migraine G43.909 ; Hypokalemia E87.6 and Short of breath on exertion R06.02 [facility] [address] [address] 12/17/2024 GENARO CERVANTES Generalized anxiety disorder F41.1 ; History of latent tuberculosis Z86.15 ; Moderate persistent asthma without complication J45.40 ; Dyspnea on exertion R06.09 ; Essential hypertension I10 ; Hyperlipidemia E78.5 ; Episodic migraine G43.909 and Hypokalemia E87.6 [facility] [address] [address] 08/18/2024 GENARO TANNERHAM [facility] [address] [place] [address] 08/27/2024 GENARO BILLY Potassium deficiency E87.6 [facility] [address] [place] [address] 08/27/2024 GENARO TANNERHAM [facility] [address] [place] [address] 09/08/2024 GENARO TANNERHAM [facility] [address] [place] [address] 09/11/2024 GENARO TANNERHAM [facility] [address] [place] [address] 10/15/2024 [address] BILLY [facility] [address] [place] [address] 02/01/2025 GENARO BILLY [facility] [address] [place] [address] 02/02/2025 GENARO BILLY [facility] [address] [place] [address] 08/14/2024 GENAROMERLENE CERVANTES [facility] [address] [place] [address] 09/24/2024 GENARO TANNERHAM [facility] [address] [place] [address] 10/29/2024 GENRAOMERLENE CERVANTES [facility] [address] [place] [address] 01/29/2025 GENARO BILLY Episodic migraine G43.909 [facility] [address] [place] [address] 05/05/2025 GENARO BILLY Assessments Encounter Date Diagnosis (ICD Code) Assessment Notes Treatment Notes Treatment Clinical Notes Section Notes 08/27/2024 Moderate persistent asthma without complication (ICD-10 - J45.40) Crystal is a 49-year-old female with a PMH of HTN, HLD, asthma, migraines presents today to follow-up. #Labs: Baseline laboratory evaluation including CBC, CMP, lipid panel, hemoglobin A1c, TSH, and vitamin D ordered -patient had them drawn today. #Asthma: Patient reports she developed asthma due to environmental exposure. Follows with elevator supervisor , last seen in July at which time her Dulera inhaler was switched to Pulmicort - records requested for review. Patient reports she has had several CXRs for evaluation of continued shortness of breath with exertion, does feel Ventolin inhaler as needed is helpful. Discussed possibility of adding Singulair, patient is agreeable. Rx for Singulair 10 mg once nightly sent to pharmacy. Reviewed proper use/side effects. #SOB with exertion: Patient reports shortness of breath with exertion. States she is unable to walk short distances without becoming short of breath. Patient with PMH of asthma which she developed secondary to environmental exposures. Currently taking Symbicort inhaler and using Ventolin as needed. Rx for Singulair 10 mg once nightly added to current regimen today. Given exertional nature of the patient's symptoms, recommending she see cardiology. [place] [facility] [place] [facility] [place]will send referral back there/records requested. Echo ordered given persistence/worsenin g of symptoms. #HTN: BP in office 140/70. Patient encouraged to continue monitoring home BPs. Continue amlodipine 5 mg daily. #HLD: Patient currently taking atorvastatin 10 mg once daily. Lipid panel ordered for continued evaluation. #Migraine: Patient reports history of chronic migraine with aura. Taking amitriptyline 25 mg once daily prophylactically with the sumatriptan 50 mg as needed. States she requires sumatriptan at least 3 times weekly for migraine headaches, refills provided. Due to see [facility] 09/14/24. Patient is encouraged to discuss alternative prophylactic treatments - ? Alternative prophylactic such as Nurtec or Ubrelvy. #Hypokalemia/hypomag nesemia: Patient reports history of low potassium and magnesium on labs. Currently takes potassium chloride 40 mEq. And magnesium oxide 400 mg once daily. Denies muscle weakness, muscle cramps, tremors, history of seizures, sensation of irregular heart rate, GI upset. CMP ordered for continued evaluation - patient went for labs today. All questions answered to the patient's satisfaction. Patient demonstrates understanding of diagnosis and treatments discussed. Follow-up in 8 weeks, sooner should any questions/concerns arise. Case discussed with collaborating physician Jen Trejo who has reviewed the assessment/plan. Chart, medications, labs, and vital signs reviewed. Dictation completed with the use of [employer] voice recognition software, prone to medical misidentifications and grammatical errors. All errors are unintentional. Although the practitioner does try to identify and correct errors, some may be present. Please do not hesitate to contact the practitioner for clarification. 08/27/2024 Dyspnea on exertion (ICD-10 - R06.09) Crystal is a 49-year-old female with a PMH of HTN, HLD, asthma, migraines presents today to follow-up. #Labs: Baseline laboratory evaluation including CBC, CMP, lipid panel, hemoglobin A1c, TSH, and vitamin D ordered -patient had them drawn today. #Asthma: Patient reports she developed asthma due to environmental exposure. Follows with elevator supervisor , last seen in July at which time her Dulera inhaler was switched to Pulmicort - records requested for review. Patient reports she has had several CXRs for evaluation of continued shortness of breath with exertion, does feel Ventolin inhaler as needed is helpful. Discussed possibility of adding Singulair, patient is agreeable. Rx for Singulair 10 mg once nightly sent to pharmacy. Reviewed proper use/side effects. #SOB with exertion: Patient reports shortness of breath with exertion. States she is unable to walk short distances without becoming short of breath. Patient with PMH of asthma which she developed secondary to environmental exposures. Currently taking Symbicort inhaler and using Ventolin as needed. Rx for Singulair 10 mg once nightly added to current regimen today. Given exertional nature of the patient's symptoms, recommending she see cardiology. [place] [facility] [place] [facility] [place]will send referral back there/records requested. Echo ordered given persistence/worsenin g of symptoms. #HTN: BP in office 140/70. Patient encouraged to continue monitoring home BPs. Continue amlodipine 5 mg daily. #HLD: Patient currently taking atorvastatin 10 mg once daily. Lipid panel ordered for continued evaluation. #Migraine: Patient reports history of chronic migraine with aura. Taking amitriptyline 25 mg once daily prophylactically with the sumatriptan 50 mg as needed. States she requires sumatriptan at least 3 times weekly for migraine headaches, refills provided. Due to see [facility] 09/14/24. Patient is encouraged to discuss alternative prophylactic treatments - ? Alternative prophylactic such as Nurtec or Ubrelvy. #Hypokalemia/hypomag nesemia: Patient reports history of low potassium and magnesium on labs. Currently takes potassium chloride 40 mEq. And magnesium oxide 400 mg once daily. Denies muscle weakness, muscle cramps, tremors, history of seizures, sensation of irregular heart rate, GI upset. CMP ordered for continued evaluation - patient went for labs today. All questions answered to the patient's satisfaction. Patient demonstrates understanding of diagnosis and treatments discussed. Follow-up in 8 weeks, sooner should any questions/concerns arise. Case discussed with collaborating physician Jen Trejo who has reviewed the assessment/plan. Chart, medications, labs, and vital signs reviewed. Dictation completed with the use of [employer] voice recognition software, prone to medical misidentifications and grammatical errors. All errors are unintentional. Although the practitioner does try to identify and correct errors, some may be present. Please do not hesitate to contact the practitioner for clarification. 08/27/2024 Potassium deficiency (ICD-10 - E87.6) 09/08/2024 Acute cough (ICD-10 - R05.1) Crystal is a 49-year-old female with a PMH of HTN, HLD, asthma, migraines that presents today for evaluation of flulike symptoms including nonproductive cough, runny nose, body aches, decreased appetite, nausea, fever, and chills x 6 days. On presentation temporal temperature is 100.2F, patient otherwise vitally stable. Physical exam reveals mild erythema of the posterior pharynx. Lungs CTA. No additional acute findings on exam. Given short duration of symptoms and potential occupational exposure, likely viral in nature. Swab for COVID/flu/RSV negative. Plan to proceed with symptomatic treatment including rest, fluids, and use of OTC decongestions as needed. Patient is encouraged to continue using Ventolin inhaler as needed. Should symptoms persist or worsen despite treatment, the patient is encouraged to contact the office for continued care. Hypokalemia: Patient seen in office 08/27/2024 at which time labs revealed critically low potassium at 2.9. Patient states her potassium has been this low before, however has not been taking her potassium supplement consistently due to decreased appetite. She continues to deny muscle weakness, muscle cramps, tremors, seizures, or cardiac symptoms. Discussed the importance of potassium repletion with potassium chloride 40 mill equivalents once daily with plan to repeat serum potassium level in 1 week. Patient demonstrates understanding. All questions answered to the patient's satisfaction. Patient demonstrates understanding of diagnosis and treatments discussed. Follow-up at next scheduled appointment, sooner should any questions/concerns arise. Case discussed with collaborating physician Jen Trejo who has reviewed the assessment/plan. Chart, medications, labs, and vital signs reviewed. Dictation completed with the use of [employer] voice recognition software, prone to medical misidentifications and grammatical errors. All errors are unintentional. Although the practitioner does try to identify and correct errors, some may be present. Please do not hesitate to contact the practitioner for clarification. 09/08/2024 Flu-like symptoms (ICD-10 - R68.89) Crystal is a 49-year-old female with a PMH of HTN, HLD, asthma, migraines that presents today for evaluation of flulike symptoms including nonproductive cough, runny nose, body aches, decreased appetite, nausea, fever, and chills x 6 days. On presentation temporal temperature is 100.2F, patient otherwise vitally stable. Physical exam reveals mild erythema of the posterior pharynx. Lungs CTA. No additional acute findings on exam. Given short duration of symptoms and potential occupational exposure, likely viral in nature. Swab for COVID/flu/RSV negative. Plan to proceed with symptomatic treatment including rest, fluids, and use of OTC decongestions as needed. Patient is encouraged to continue using Ventolin inhaler as needed. Should symptoms persist or worsen despite treatment, the patient is encouraged to contact the office for continued care. Hypokalemia: Patient seen in office 08/27/2024 at which time labs revealed critically low potassium at 2.9. Patient states her potassium has been this low before, however has not been taking her potassium supplement consistently due to decreased appetite. She continues to deny muscle weakness, muscle cramps, tremors, seizures, or cardiac symptoms. Discussed the importance of potassium repletion with potassium chloride 40 mill equivalents once daily with plan to repeat serum potassium level in 1 week. Patient demonstrates understanding. All questions answered to the patient's satisfaction. Patient demonstrates understanding of diagnosis and treatments discussed. Follow-up at next scheduled appointment, sooner should any questions/concerns arise. Case discussed with collaborating physician Jen Trejo who has reviewed the assessment/plan. Chart, medications, labs, and vital signs reviewed. Dictation completed with the use of [employer] voice recognition software, prone to medical misidentifications and grammatical errors. All errors are unintentional. Although the practitioner does try to identify and correct errors, some may be present. Please do not hesitate to contact the practitioner for clarification. 10/27/2024 Moderate persistent asthma without complication (ICD-10 - J45.40) Crystal is a 49-year-old female with a PMH of HTN, HLD, asthma, migraines presents today to follow-up. #Asthma: Patient reports she developed asthma due to environmental exposure - continues to experience dyspnea on exertion. Currently taking Symbicort twice daily and albuterol as needed. Not taking Pulmicort as prescribed by elevator supervisor Dr. Esposito. At time of last visit patient was started on Singulair 10 mg once nightly, which she felt wasn't overly helpful, she may discontinue this medication if no clinical improvement. She is encouraged to continue to f/u with pulmonology per their recommendations. #SOB with exertion: Patient reports continued shortness of breath with exertion. States she is unable to walk short distances without becoming short of breath. Reports little symptom improvement with use of Symbicort twice daily and albuterol as needed. Referral to cardiology placed, due to establish care in December. Will order echo to assess for potential cardiac etiologies of symptoms. #HTN: BP in office 128/78. Continue amlodipine 5 mg daily. #HLD: Continue atorvastatin 10 mg once daily. #Migraine: Patient reports history of chronic migraine with aura. Taking amitriptyline 25 mg once daily prophylactically with the sumatriptan 50 mg as needed. States she requires sumatriptan at least 3 times weekly for migraine headaches. Patient has struggled with chronic migraine headaches with aura since childhood. Previously had FMLA that allowed for 3 days/month of intermittent leave due to debilitating migraine symptoms. FMLA updated today. Was due to establish care with [facility] 09/14/2024, unfortunately appointment rescheduled for since March due to lack of provider availability. Patient to follow-up with previous neurologist Angela Webster in February. Due to frequency/severity of symptoms discussed alternative meds such as Nurtec vs Ubrelvy. Patient interested in trying Nurtec, samples provided. She understands to take one 75 mg tablet for headache. May repeat the following day if no symptom improvement. If successful may consider transition to prophylactic treatment with 75 mg every other day. #Hypokalemia/hypomag nesemia: Labs drawn 08/27/24 revealed critically low potassium at 2.9. Patient reports she has had low potassium in the past and was asymptomatic at that time. Patient supplementing with KCl 40mEq every other day, repeat labs WNL at 3.7. Reviewed causes of low potassium including she does use albuterol inhaler frequently which may be contributing to low potassium. She is encouraged to acid/base imbalance/GI losses/albuterol use. In the absence of acid/base imbalance or GI loss, suspect frequent albuterol use may contribute to hypokalemia. Patient is cautioned to only use the medication as needed, she demonstrates understanding. Plan to continue supplementation with 40 mEq every other day and recheck serum potassium in 1 month. All questions answered to the patient's satisfaction. Patient demonstrates understanding of diagnosis and treatments discussed. Follow-up in 4 weeks, sooner should any questions/concerns arise. Case discussed with collaborating physician Jen Trejo who has reviewed the assessment/plan. Chart, medications, labs, and vital signs reviewed. Dictation completed with the use of [employer] voice recognition software, prone to medical misidentifications and grammatical errors. All errors are unintentional. Although the practitioner does try to identify and correct errors, some may be present. Please do not hesitate to contact the practitioner for clarification. 12/17/2024 Generalized anxiety disorder (ICD-10 - F41.1) Crystal is a 49-year-old female with a PMH of HTN, HLD, asthma/chronic bronchitis, anxiety, migraines that presents today to follow-up. #Anxiety: Patient reports increased anxiety since discontinuation of amitriptyline 25 mg once daily. Denies SI/HI or panic attacks. Has tried alternative SSRIs in the past without significant symptom improvement. Interested in reinitiating treatment with amitriptyline, refill provided. Reviewed proper use and side effects including but not limited to drowsiness, blood pressure changes, syncope, arrhythmias etc. #History of latent TB (w/out treatment) - most recent CXR 07/31/24 unremarkable. #SOB with exertion: Patient continues to struggle with SOB with exertion and long lengths of conversation. Has tried montelukast and many inhalers including but not limited to Advair, Symbicort, Dulera, etc., without significant symptom improvement. Previously followed with elevator supervisor Stephanie Esposito MD. Per note review, PFTs with mild restrictive pattern. High resolution CT of the chest from 01/03/2024 reveals mild basilar scarring vs. atelectasis R>L. On exam patient's voice loses velocity/volume with long lengths of conversation. Lungs CTA. O2 saturation 98%. Patient due to establish care with P[facility]/get echo in the coming weeks to assess for underlying cardiac etiology. Will also refer to alternative elevator supervisor at the patient's request. #HTN: BP in office 120/88. Continue amlodipine 5 mg daily. #HLD: Continue atorvastatin 10 mg once daily. #Migraine: Taking sumatriptan 50 mg as needed. Prescribed Nurtec for the patient to try, she has not yet tried the medication due to high [id number] cost ($50/month). Nurtec copay coupon provided. She is encouraged to try Nurtec at time of next migraine headache. If Nurtec successfully aborts headache, consider every other day dosing with goal of prophylactic treatment/decreasing need for sumatriptan. Follow up with [facility] in February as scheduled. #Hypokalemia/hypomag nesemia: Most recent labs reveal normal serum K at 3.6. Continue supplementing with KCl 40mEq every other day. All questions answered to the patient's satisfaction. Patient demonstrates understanding of diagnosis and treatments discussed. Follow-up in 8-12 weeks, sooner should any questions/concerns arise. Case discussed with collaborating physician Jen Trejo who has reviewed the assessment/plan. Chart, medications, labs, and vital signs reviewed. Dictation completed with the use of [employer] voice recognition software, prone to medical misidentifications and grammatical errors. All errors are unintentional. Although the practitioner does try to identify and correct errors, some may be present. Please do not hesitate to contact the practitioner for clarification. 12/17/2024 History of latent tuberculosis (ICD-10 - Z86.15) Crystal is a 49-year-old female with a PMH of HTN, HLD, asthma/chronic bronchitis, anxiety, migraines that presents today to follow-up. #Anxiety: Patient reports increased anxiety since discontinuation of amitriptyline 25 mg once daily. Denies SI/HI or panic attacks. Has tried alternative SSRIs in the past without significant symptom improvement. Interested in reinitiating treatment with amitriptyline, refill provided. Reviewed proper use and side effects including but not limited to drowsiness, blood pressure changes, syncope, arrhythmias etc. #History of latent TB (w/out treatment) - most recent CXR 07/31/24 unremarkable. #SOB with exertion: Patient continues to struggle with SOB with exertion and long lengths of conversation. Has tried montelukast and many inhalers including but not limited to Advair, Symbicort, Dulera, etc., without significant symptom improvement. Previously followed with elevator supervisor Stephanie Esposito MD. Per note review, PFTs with mild restrictive pattern. High resolution CT of the chest from 01/03/2024 reveals mild basilar scarring vs. atelectasis R>L. On exam patient's voice loses velocity/volume with long lengths of conversation. Lungs CTA. O2 saturation 98%. Patient due to establish care with P[facility]/get echo in the coming weeks to assess for underlying cardiac etiology. Will also refer to alternative elevator supervisor at the patient's request. #HTN: BP in office 120/88. Continue amlodipine 5 mg daily. #HLD: Continue atorvastatin 10 mg once daily. #Migraine: Taking sumatriptan 50 mg as needed. Prescribed Nurtec for the patient to try, she has not yet tried the medication due to high [id number] cost ($50/month). Nurtec copay coupon provided. She is encouraged to try Nurtec at time of next migraine headache. If Nurtec successfully aborts headache, consider every other day dosing with goal of prophylactic treatment/decreasing need for sumatriptan. Follow up with [facility] in February as scheduled. #Hypokalemia/hypomag nesemia: Most recent labs reveal normal serum K at 3.6. Continue supplementing with KCl 40mEq every other day. All questions answered to the patient's satisfaction. Patient demonstrates understanding of diagnosis and treatments discussed. Follow-up in 8-12 weeks, sooner should any questions/concerns arise. Case discussed with collaborating physician Jen Trejo who has reviewed the assessment/plan. Chart, medications, labs, and vital signs reviewed. Dictation completed with the use of [employer] voice recognition software, prone to medical misidentifications and grammatical errors. All errors are unintentional. Although the practitioner does try to identify and correct errors, some may be present. Please do not hesitate to contact the practitioner for clarification. 01/29/2025 Episodic migraine (ICD-10 - G43.909) 12/17/2024 Moderate persistent asthma without complication (ICD-10 - J45.40) Crystal is a 49-year-old female with a PMH of HTN, HLD, asthma/chronic bronchitis, anxiety, migraines that presents today to follow-up. #Anxiety: Patient reports increased anxiety since discontinuation of amitriptyline 25 mg once daily. Denies SI/HI or panic attacks. Has tried alternative SSRIs in the past without significant symptom improvement. Interested in reinitiating treatment with amitriptyline, refill provided. Reviewed proper use and side effects including but not limited to drowsiness, blood pressure changes, syncope, arrhythmias etc. #History of latent TB (w/out treatment) - most recent CXR 07/31/24 unremarkable. #SOB with exertion: Patient continues to struggle with SOB with exertion and long lengths of conversation. Has tried montelukast and many inhalers including but not limited to Advair, Symbicort, Dulera, etc., without significant symptom improvement. Previously followed with elevator supervisor Stephanie Esposito MD. Per note review, PFTs with mild restrictive pattern. High resolution CT of the chest from 01/03/2024 reveals mild basilar scarring vs. atelectasis R>L. On exam patient's voice loses velocity/volume with long lengths of conversation. Lungs CTA. O2 saturation 98%. Patient due to establish care with PVC/get echo in the coming weeks to assess for underlying cardiac etiology. Will also refer to alternative elevator supervisor at the patient's request. #HTN: BP in office 120/88. Continue amlodipine 5 mg daily. #HLD: Continue atorvastatin 10 mg once daily. #Migraine: Taking sumatriptan 50 mg as needed. Prescribed Nurtec for the patient to try, she has not yet tried the medication due to high [id number] cost ($50/month). Nurtec copay coupon provided. She is encouraged to try Nurtec at time of next migraine headache. If Nurtec successfully aborts headache, consider every other day dosing with goal of prophylactic treatment/decreasing need for sumatriptan. Follow up with [facility] in February as scheduled. #Hypokalemia/hypomag nesemia: Most recent labs reveal normal serum K at 3.6. Continue supplementing with KCl 40mEq every other day. All questions answered to the patient's satisfaction. Patient demonstrates understanding of diagnosis and treatments discussed. Follow-up in 8-12 weeks, sooner should any questions/concerns arise. Case discussed with collaborating physician Jen Trejo who has reviewed the assessment/plan. Chart, medications, labs, and vital signs reviewed. Dictation completed with the use of [employer] voice recognition software, prone to medical misidentifications and grammatical errors. All errors are unintentional. Although the practitioner does try to identify and correct errors, some may be present. Please do not hesitate to contact the practitioner for clarification. 10/27/2024 Dyspnea on exertion (ICD-10 - R06.09) Crystal is a 49-year-old female with a PMH of HTN, HLD, asthma, migraines presents today to follow-up. #Asthma: Patient reports she developed asthma due to environmental exposure - continues to experience dyspnea on exertion. Currently taking Symbicort twice daily and albuterol as needed. Not taking Pulmicort as prescribed by elevator supervisor Dr. Esposito. At time of last visit patient was started on Singulair 10 mg once nightly, which she felt wasn't overly helpful, she may discontinue this medication if no clinical improvement. She is encouraged to continue to f/u with pulmonology per their recommendations. #SOB with exertion: Patient reports continued shortness of breath with exertion. States she is unable to walk short distances without becoming short of breath. Reports little symptom improvement with use of Symbicort twice daily and albuterol as needed. Referral to cardiology placed, due to establish care in December. Will order echo to assess for potential cardiac etiologies of symptoms. #HTN: BP in office 128/78. Continue amlodipine 5 mg daily. #HLD: Continue atorvastatin 10 mg once daily. #Migraine: Patient reports history of chronic migraine with aura. Taking amitriptyline 25 mg once daily prophylactically with the sumatriptan 50 mg as needed. States she requires sumatriptan at least 3 times weekly for migraine headaches. Patient has struggled with chronic migraine headaches with aura since childhood. Previously had FMLA that allowed for 3 days/month of intermittent leave due to debilitating migraine symptoms. FMLA updated today. Was due to establish care with [facility] 09/14/2024, unfortunately appointment rescheduled for since March due to lack of provider availability. Patient to follow-up with previous neurologist Angela Webster in February. Due to frequency/severity of symptoms discussed alternative meds such as Nurtec vs Ubrelvy. Patient interested in trying Nurtec, samples provided. She understands to take one 75 mg tablet for headache. May repeat the following day if no symptom improvement. If successful may consider transition to prophylactic treatment with 75 mg every other day. #Hypokalemia/hypomag nesemia: Labs drawn 08/27/24 revealed critically low potassium at 2.9. Patient reports she has had low potassium in the past and was asymptomatic at that time. Patient supplementing with KCl 40mEq every other day, repeat labs WNL at 3.7. Reviewed causes of low potassium including she does use albuterol inhaler frequently which may be contributing to low potassium. She is encouraged to acid/base imbalance/GI losses/albuterol use. In the absence of acid/base imbalance or GI loss, suspect frequent albuterol use may contribute to hypokalemia. Patient is cautioned to only use the medication as needed, she demonstrates understanding. Plan to continue supplementation with 40 mEq every other day and recheck serum potassium in 1 month. All questions answered to the patient's satisfaction. Patient demonstrates understanding of diagnosis and treatments discussed. Follow-up in 4 weeks, sooner should any questions/concerns arise. Case discussed with collaborating physician Jen Trejo who has reviewed the assessment/plan. Chart, medications, labs, and vital signs reviewed. Dictation completed with the use of [employer] voice recognition software, prone to medical misidentifications and grammatical errors. All errors are unintentional. Although the practitioner does try to identify and correct errors, some may be present. Please do not hesitate to contact the practitioner for clarification. 10/27/2024 Essential hypertension (ICD-10 - I10) Crystal is a 49-year-old female with a PMH of HTN, HLD, asthma, migraines presents today to follow-up. #Asthma: Patient reports she developed asthma due to environmental exposure - continues to experience dyspnea on exertion. Currently taking Symbicort twice daily and albuterol as needed. Not taking Pulmicort as prescribed by elevator supervisor Dr. Esposito. At time of last visit patient was started on Singulair 10 mg once nightly, which she felt wasn't overly helpful, she may discontinue this medication if no clinical improvement. She is encouraged to continue to f/u with pulmonology per their recommendations. #SOB with exertion: Patient reports continued shortness of breath with exertion. States she is unable to walk short distances without becoming short of breath. Reports little symptom improvement with use of Symbicort twice daily and albuterol as needed. Referral to cardiology placed, due to establish care in December. Will order echo to assess for potential cardiac etiologies of symptoms. #HTN: BP in office 128/78. Continue amlodipine 5 mg daily. #HLD: Continue atorvastatin 10 mg once daily. #Migraine: Patient reports history of chronic migraine with aura. Taking amitriptyline 25 mg once daily prophylactically with the sumatriptan 50 mg as needed. States she requires sumatriptan at least 3 times weekly for migraine headaches. Patient has struggled with chronic migraine headaches with aura since childhood. Previously had FMLA that allowed for 3 days/month of intermittent leave due to debilitating migraine symptoms. FMLA updated today. Was due to establish care with [facility] 09/14/2024, unfortunately appointment rescheduled for since March due to lack of provider availability. Patient to follow-up with previous neurologist Angela Webster in February. Due to frequency/severity of symptoms discussed alternative meds such as Nurtec vs Ubrelvy. Patient interested in trying Nurtec, samples provided. She understands to take one 75 mg tablet for headache. May repeat the following day if no symptom improvement. If successful may consider transition to prophylactic treatment with 75 mg every other day. #Hypokalemia/hypomag nesemia: Labs drawn 08/27/24 revealed critically low potassium at 2.9. Patient reports she has had low potassium in the past and was asymptomatic at that time. Patient supplementing with KCl 40mEq every other day, repeat labs WNL at 3.7. Reviewed causes of low potassium including she does use albuterol inhaler frequently which may be contributing to low potassium. She is encouraged to acid/base imbalance/GI losses/albuterol use. In the absence of acid/base imbalance or GI loss, suspect frequent albuterol use may contribute to hypokalemia. Patient is cautioned to only use the medication as needed, she demonstrates understanding. Plan to continue supplementation with 40 mEq every other day and recheck serum potassium in 1 month. All questions answered to the patient's satisfaction. Patient demonstrates understanding of diagnosis and treatments discussed. Follow-up in 4 weeks, sooner should any questions/concerns arise. Case discussed with collaborating physician Jen Trejo who has reviewed the assessment/plan. Chart, medications, labs, and vital signs reviewed. Dictation completed with the use of [employer] voice recognition software, prone to medical misidentifications and grammatical errors. All errors are unintentional. Although the practitioner does try to identify and correct errors, some may be present. Please do not hesitate to contact the practitioner for clarification. 09/08/2024 Hypokalemia (ICD-10 - E87.6) Crystal is a 49-year-old female with a PMH of HTN, HLD, asthma, migraines that presents today for evaluation of flulike symptoms including nonproductive cough, runny nose, body aches, decreased appetite, nausea, fever, and chills x 6 days. On presentation temporal temperature is 100.2F, patient otherwise vitally stable. Physical exam reveals mild erythema of the posterior pharynx. Lungs CTA. No additional acute findings on exam. Given short duration of symptoms and potential occupational exposure, likely viral in nature. Swab for COVID/flu/RSV negative. Plan to proceed with symptomatic treatment including rest, fluids, and use of OTC decongestions as needed. Patient is encouraged to continue using Ventolin inhaler as needed. Should symptoms persist or worsen despite treatment, the patient is encouraged to contact the office for continued care. Hypokalemia: Patient seen in office 08/27/2024 at which time labs revealed critically low potassium at 2.9. Patient states her potassium has been this low before, however has not been taking her potassium supplement consistently due to decreased appetite. She continues to deny muscle weakness, muscle cramps, tremors, seizures, or cardiac symptoms. Discussed the importance of potassium repletion with potassium chloride 40 mill equivalents once daily with plan to repeat serum potassium level in 1 week. Patient demonstrates understanding. All questions answered to the patient's satisfaction. Patient demonstrates understanding of diagnosis and treatments discussed. Follow-up at next scheduled appointment, sooner should any questions/concerns arise. Case discussed with collaborating physician Jen Trejo who has reviewed the assessment/plan. Chart, medications, labs, and vital signs reviewed. Dictation completed with the use of [employer] voice recognition software, prone to medical misidentifications and grammatical errors. All errors are unintentional. Although the practitioner does try to identify and correct errors, some may be present. Please do not hesitate to contact the practitioner for clarification. 08/27/2024 Essential hypertension (ICD-10 - I10) Crystal is a 49-year-old female with a PMH of HTN, HLD, asthma, migraines presents today to follow-up. #Labs: Baseline laboratory evaluation including CBC, CMP, lipid panel, hemoglobin A1c, TSH, and vitamin D ordered -patient had them drawn today. #Asthma: Patient reports she developed asthma due to environmental exposure. Follows with elevator supervisor , last seen in July at which time her Dulera inhaler was switched to Pulmicort - records requested for review. Patient reports she has had several CXRs for evaluation of continued shortness of breath with exertion, does feel Ventolin inhaler as needed is helpful. Discussed possibility of adding Singulair, patient is agreeable. Rx for Singulair 10 mg once nightly sent to pharmacy. Reviewed proper use/side effects. #SOB with exertion: Patient reports shortness of breath with exertion. States she is unable to walk short distances without becoming short of breath. Patient with PMH of asthma which she developed secondary to environmental exposures. Currently taking Symbicort inhaler and using Ventolin as needed. Rx for Singulair 10 mg once nightly added to current regimen today. Given exertional nature of the patient's symptoms, recommending she see cardiology. [place] [facility] [facility] [place]will send referral back there/records requested. Echo ordered given persistence/worsenin g of symptoms. #HTN: BP in office 140/70. Patient encouraged to continue monitoring home BPs. Continue amlodipine 5 mg daily. #HLD: Patient currently taking atorvastatin 10 mg once daily. Lipid panel ordered for continued evaluation. #Migraine: Patient reports history of chronic migraine with aura. Taking amitriptyline 25 mg once daily prophylactically with the sumatriptan 50 mg as needed. States she requires sumatriptan at least 3 times weekly for migraine headaches, refills provided. Due to see [facility] 09/14/24. Patient is encouraged to discuss alternative prophylactic treatments - ? Alternative prophylactic such as Nurtec or Ubrelvy. #Hypokalemia/hypomag nesemia: Patient reports history of low potassium and magnesium on labs. Currently takes potassium chloride 40 mEq. And magnesium oxide 400 mg once daily. Denies muscle weakness, muscle cramps, tremors, history of seizures, sensation of irregular heart rate, GI upset. CMP ordered for continued evaluation - patient went for labs today. All questions answered to the patient's satisfaction. Patient demonstrates understanding of diagnosis and treatments discussed. Follow-up in 8 weeks, sooner should any questions/concerns arise. Case discussed with collaborating physician Jen Trejo who has reviewed the assessment/plan. Chart, medications, labs, and vital signs reviewed. Dictation completed with the use of [employer] voice recognition software, prone to medical misidentifications and grammatical errors. All errors are unintentional. Although the practitioner does try to identify and correct errors, some may be present. Please do not hesitate to contact the practitioner for clarification. 08/27/2024 Hyperlipidemia, unspecified hyperlipidemia type (ICD-10 - E78.5) Crystal is a 49-year-old female with a PMH of HTN, HLD, asthma, migraines presents today to follow-up. #Labs: Baseline laboratory evaluation including CBC, CMP, lipid panel, hemoglobin A1c, TSH, and vitamin D ordered -patient had them drawn today. #Asthma: Patient reports she developed asthma due to environmental exposure. Follows with elevator supervisor , last seen in July at which time her Dulera inhaler was switched to Pulmicort - records requested for review. Patient reports she has had several CXRs for evaluation of continued shortness of breath with exertion, does feel Ventolin inhaler as needed is helpful. Discussed possibility of adding Singulair, patient is agreeable. Rx for Singulair 10 mg once nightly sent to pharmacy. Reviewed proper use/side effects. #SOB with exertion: Patient reports shortness of breath with exertion. States she is unable to walk short distances without becoming short of breath. Patient with PMH of asthma which she developed secondary to environmental exposures. Currently taking Symbicort inhaler and using Ventolin as needed. Rx for Singulair 10 mg once nightly added to current regimen today. Given exertional nature of the patient's symptoms, recommending she see cardiology. [place] [facility] [place] [facility] [place]will send referral back there/records requested. Echo ordered given persistence/worsenin g of symptoms. #HTN: BP in office 140/70. Patient encouraged to continue monitoring home BPs. Continue amlodipine 5 mg daily. #HLD: Patient currently taking atorvastatin 10 mg once daily. Lipid panel ordered for continued evaluation. #Migraine: Patient reports history of chronic migraine with aura. Taking amitriptyline 25 mg once daily prophylactically with the sumatriptan 50 mg as needed. States she requires sumatriptan at least 3 times weekly for migraine headaches, refills provided. Due to see [facility] 09/14/24. Patient is encouraged to discuss alternative prophylactic treatments - ? Alternative prophylactic such as Nurtec or Ubrelvy. #Hypokalemia/hypomag nesemia: Patient reports history of low potassium and magnesium on labs. Currently takes potassium chloride 40 mEq. And magnesium oxide 400 mg once daily. Denies muscle weakness, muscle cramps, tremors, history of seizures, sensation of irregular heart rate, GI upset. CMP ordered for continued evaluation - patient went for labs today. All questions answered to the patient's satisfaction. Patient demonstrates understanding of diagnosis and treatments discussed. Follow-up in 8 weeks, sooner should any questions/concerns arise. Case discussed with collaborating physician Jen Trejo who has reviewed the assessment/plan. Chart, medications, labs, and vital signs reviewed. Dictation completed with the use of [employer] voice recognition software, prone to medical misidentifications and grammatical errors. All errors are unintentional. Although the practitioner does try to identify and correct errors, some may be present. Please do not hesitate to contact the practitioner for clarification. 10/27/2024 Hyperlipidemia, unspecified hyperlipidemia type (ICD-10 - E78.5) Crystal is a 49-year-old female with a PMH of HTN, HLD, asthma, migraines presents today to follow-up. #Asthma: Patient reports she developed asthma due to environmental exposure - continues to experience dyspnea on exertion. Currently taking Symbicort twice daily and albuterol as needed. Not taking Pulmicort as prescribed by elevator supervisor Dr. Esposito. At time of last visit patient was started on Singulair 10 mg once nightly, which she felt wasn't overly helpful, she may discontinue this medication if no clinical improvement. She is encouraged to continue to f/u with pulmonology per their recommendations. #SOB with exertion: Patient reports continued shortness of breath with exertion. States she is unable to walk short distances without becoming short of breath. Reports little symptom improvement with use of Symbicort twice daily and albuterol as needed. Referral to cardiology placed, due to establish care in December. Will order echo to assess for potential cardiac etiologies of symptoms. #HTN: BP in office 128/78. Continue amlodipine 5 mg daily. #HLD: Continue atorvastatin 10 mg once daily. #Migraine: Patient reports history of chronic migraine with aura. Taking amitriptyline 25 mg once daily prophylactically with the sumatriptan 50 mg as needed. States she requires sumatriptan at least 3 times weekly for migraine headaches. Patient has struggled with chronic migraine headaches with aura since childhood. Previously had FMLA that allowed for 3 days/month of intermittent leave due to debilitating migraine symptoms. FMLA updated today. Was due to establish care with [facility] 09/14/2024, unfortunately appointment rescheduled for since March due to lack of provider availability. Patient to follow-up with previous neurologist Angela Webster in February. Due to frequency/severity of symptoms discussed alternative meds such as Nurtec vs Ubrelvy. Patient interested in trying Nurtec, samples provided. She understands to take one 75 mg tablet for headache. May repeat the following day if no symptom improvement. If successful may consider transition to prophylactic treatment with 75 mg every other day. #Hypokalemia/hypomag nesemia: Labs drawn 08/27/24 revealed critically low potassium at 2.9. Patient reports she has had low potassium in the past and was asymptomatic at that time. Patient supplementing with KCl 40mEq every other day, repeat labs WNL at 3.7. Reviewed causes of low potassium including she does use albuterol inhaler frequently which may be contributing to low potassium. She is encouraged to acid/base imbalance/GI losses/albuterol use. In the absence of acid/base imbalance or GI loss, suspect frequent albuterol use may contribute to hypokalemia. Patient is cautioned to only use the medication as needed, she demonstrates understanding. Plan to continue supplementation with 40 mEq every other day and recheck serum potassium in 1 month. All questions answered to the patient's satisfaction. Patient demonstrates understanding of diagnosis and treatments discussed. Follow-up in 4 weeks, sooner should any questions/concerns arise. Case discussed with collaborating physician Jen Trejo who has reviewed the assessment/plan. Chart, medications, labs, and vital signs reviewed. Dictation completed with the use of [employer] voice recognition software, prone to medical misidentifications and grammatical errors. All errors are unintentional. Although the practitioner does try to identify and correct errors, some may be present. Please do not hesitate to contact the practitioner for clarification. 12/17/2024 Dyspnea on exertion (ICD-10 - R06.09) Crystal is a 49-year-old female with a PMH of HTN, HLD, asthma/chronic bronchitis, anxiety, migraines that presents today to follow-up. #Anxiety: Patient reports increased anxiety since discontinuation of amitriptyline 25 mg once daily. Denies SI/HI or panic attacks. Has tried alternative SSRIs in the past without significant symptom improvement. Interested in reinitiating treatment with amitriptyline, refill provided. Reviewed proper use and side effects including but not limited to drowsiness, blood pressure changes, syncope, arrhythmias etc. #History of latent TB (w/out treatment) - most recent CXR 07/31/24 unremarkable. #SOB with exertion: Patient continues to struggle with SOB with exertion and long lengths of conversation. Has tried montelukast and many inhalers including but not limited to Advair, Symbicort, Dulera, etc., without significant symptom improvement. Previously followed with elevator supervisor Stephanie Esposito MD. Per note review, PFTs with mild restrictive pattern. High resolution CT of the chest from 01/03/2024 reveals mild basilar scarring vs. atelectasis R>L. On exam patient's voice loses velocity/volume with long lengths of conversation. Lungs CTA. O2 saturation 98%. Patient due to establish care with PVC/get echo in the coming weeks to assess for underlying cardiac etiology. Will also refer to alternative elevator supervisor at the patient's request. #HTN: BP in office 120/88. Continue amlodipine 5 mg daily. #HLD: Continue atorvastatin 10 mg once daily. #Migraine: Taking sumatriptan 50 mg as needed. Prescribed Nurtec for the patient to try, she has not yet tried the medication due to high [id number] cost ($50/month). Nurtec copay coupon provided. She is encouraged to try Nurtec at time of next migraine headache. If Nurtec successfully aborts headache, consider every other day dosing with goal of prophylactic treatment/decreasing need for sumatriptan. Follow up with [facility] in February as scheduled. #Hypokalemia/hypomag nesemia: Most recent labs reveal normal serum K at 3.6. Continue supplementing with KCl 40mEq every other day. All questions answered to the patient's satisfaction. Patient demonstrates understanding of diagnosis and treatments discussed. Follow-up in 8-12 weeks, sooner should any questions/concerns arise. Case discussed with collaborating physician Jen Trejo who has reviewed the assessment/plan. Chart, medications, labs, and vital signs reviewed. Dictation completed with the use of [employer] voice recognition software, prone to medical misidentifications and grammatical errors. All errors are unintentional. Although the practitioner does try to identify and correct errors, some may be present. Please do not hesitate to contact the practitioner for clarification. 10/27/2024 Episodic migraine (ICD-10 - G43.909) Crystal is a 49-year-old female with a PMH of HTN, HLD, asthma, migraines presents today to follow-up. #Asthma: Patient reports she developed asthma due to environmental exposure - continues to experience dyspnea on exertion. Currently taking Symbicort twice daily and albuterol as needed. Not taking Pulmicort as prescribed by elevator supervisor Dr. Esposito. At time of last visit patient was started on Singulair 10 mg once nightly, which she felt wasn't overly helpful, she may discontinue this medication if no clinical improvement. She is encouraged to continue to f/u with pulmonology per their recommendations. #SOB with exertion: Patient reports continued shortness of breath with exertion. States she is unable to walk short distances without becoming short of breath. Reports little symptom improvement with use of Symbicort twice daily and albuterol as needed. Referral to cardiology placed, due to establish care in December. Will order echo to assess for potential cardiac etiologies of symptoms. #HTN: BP in office 128/78. Continue amlodipine 5 mg daily. #HLD: Continue atorvastatin 10 mg once daily. #Migraine: Patient reports history of chronic migraine with aura. Taking amitriptyline 25 mg once daily prophylactically with the sumatriptan 50 mg as needed. States she requires sumatriptan at least 3 times weekly for migraine headaches. Patient has struggled with chronic migraine headaches with aura since childhood. Previously had FMLA that allowed for 3 days/month of intermittent leave due to debilitating migraine symptoms. FMLA updated today. Was due to establish care with [facility] 09/14/2024, unfortunately appointment rescheduled for since March due to lack of provider availability. Patient to follow-up with previous neurologist Angela Webster in February. Due to frequency/severity of symptoms discussed alternative meds such as Nurtec vs Ubrelvy. Patient interested in trying Nurtec, samples provided. She understands to take one 75 mg tablet for headache. May repeat the following day if no symptom improvement. If successful may consider transition to prophylactic treatment with 75 mg every other day. #Hypokalemia/hypomag nesemia: Labs drawn 08/27/24 revealed critically low potassium at 2.9. Patient reports she has had low potassium in the past and was asymptomatic at that time. Patient supplementing with KCl 40mEq every other day, repeat labs WNL at 3.7. Reviewed causes of low potassium including she does use albuterol inhaler frequently which may be contributing to low potassium. She is encouraged to acid/base imbalance/GI losses/albuterol use. In the absence of acid/base imbalance or GI loss, suspect frequent albuterol use may contribute to hypokalemia. Patient is cautioned to only use the medication as needed, she demonstrates understanding. Plan to continue supplementation with 40 mEq every other day and recheck serum potassium in 1 month. All questions answered to the patient's satisfaction. Patient demonstrates understanding of diagnosis and treatments discussed. Follow-up in 4 weeks, sooner should any questions/concerns arise. Case discussed with collaborating physician Jen Trejo who has reviewed the assessment/plan. Chart, medications, labs, and vital signs reviewed. Dictation completed with the use of [employer] voice recognition software, prone to medical misidentifications and grammatical errors. All errors are unintentional. Although the practitioner does try to identify and correct errors, some may be present. Please do not hesitate to contact the practitioner for clarification. 12/17/2024 Essential hypertension (ICD-10 - I10) Crystal is a 49-year-old female with a PMH of HTN, HLD, asthma/chronic bronchitis, anxiety, migraines that presents today to follow-up. #Anxiety: Patient reports increased anxiety since discontinuation of amitriptyline 25 mg once daily. Denies SI/HI or panic attacks. Has tried alternative SSRIs in the past without significant symptom improvement. Interested in reinitiating treatment with amitriptyline, refill provided. Reviewed proper use and side effects including but not limited to drowsiness, blood pressure changes, syncope, arrhythmias etc. #History of latent TB (w/out treatment) - most recent CXR 07/31/24 unremarkable. #SOB with exertion: Patient continues to struggle with SOB with exertion and long lengths of conversation. Has tried montelukast and many inhalers including but not limited to Advair, Symbicort, Dulera, etc., without significant symptom improvement. Previously followed with elevator supervisor Stephanie Esposito MD. Per note review, PFTs with mild restrictive pattern. High resolution CT of the chest from 01/03/2024 reveals mild basilar scarring vs. atelectasis R>L. On exam patient's voice loses velocity/volume with long lengths of conversation. Lungs CTA. O2 saturation 98%. Patient due to establish care with PVC/get echo in the coming weeks to assess for underlying cardiac etiology. Will also refer to alternative elevator supervisor at the patient's request. #HTN: BP in office 120/88. Continue amlodipine 5 mg daily. #HLD: Continue atorvastatin 10 mg once daily. #Migraine: Taking sumatriptan 50 mg as needed. Prescribed Nurtec for the patient to try, she has not yet tried the medication due to high [id number] cost ($50/month). Nurtec copay coupon provided. She is encouraged to try Nurtec at time of next migraine headache. If Nurtec successfully aborts headache, consider every other day dosing with goal of prophylactic treatment/decreasing need for sumatriptan. Follow up with [facility] in February as scheduled. #Hypokalemia/hypomag nesemia: Most recent labs reveal normal serum K at 3.6. Continue supplementing with KCl 40mEq every other day. All questions answered to the patient's satisfaction. Patient demonstrates understanding of diagnosis and treatments discussed. Follow-up in 8-12 weeks, sooner should any questions/concerns arise. Case discussed with collaborating physician Jen Trejo who has reviewed the assessment/plan. Chart, medications, labs, and vital signs reviewed. Dictation completed with the use of [employer] voice recognition software, prone to medical misidentifications and grammatical errors. All errors are unintentional. Although the practitioner does try to identify and correct errors, some may be present. Please do not hesitate to contact the practitioner for clarification. 08/27/2024 Episodic migraine (ICD-10 - G43.909) Crystal is a 49-year-old female with a PMH of HTN, HLD, asthma, migraines presents today to follow-up. #Labs: Baseline laboratory evaluation including CBC, CMP, lipid panel, hemoglobin A1c, TSH, and vitamin D ordered -patient had them drawn today. #Asthma: Patient reports she developed asthma due to environmental exposure. Follows with elevator supervisor , last seen in July at which time her Dulera inhaler was switched to Pulmicort - records requested for review. Patient reports she has had several CXRs for evaluation of continued shortness of breath with exertion, does feel Ventolin inhaler as needed is helpful. Discussed possibility of adding Singulair, patient is agreeable. Rx for Singulair 10 mg once nightly sent to pharmacy. Reviewed proper use/side effects. #SOB with exertion: Patient reports shortness of breath with exertion. States she is unable to walk short distances without becoming short of breath. Patient with PMH of asthma which she developed secondary to environmental exposures. Currently taking Symbicort inhaler and using Ventolin as needed. Rx for Singulair 10 mg once nightly added to current regimen today. Given exertional nature of the patient's symptoms, recommending she see cardiology. [place] [facility] [place] [facility] [place]will send referral back there/records requested. Echo ordered given persistence/worsenin g of symptoms. #HTN: BP in office 140/70. Patient encouraged to continue monitoring home BPs. Continue amlodipine 5 mg daily. #HLD: Patient currently taking atorvastatin 10 mg once daily. Lipid panel ordered for continued evaluation. #Migraine: Patient reports history of chronic migraine with aura. Taking amitriptyline 25 mg once daily prophylactically with the sumatriptan 50 mg as needed. States she requires sumatriptan at least 3 times weekly for migraine headaches, refills provided. Due to see [facility] 09/14/24. Patient is encouraged to discuss alternative prophylactic treatments - ? Alternative prophylactic such as Nurtec or Ubrelvy. #Hypokalemia/hypomag nesemia: Patient reports history of low potassium and magnesium on labs. Currently takes potassium chloride 40 mEq. And magnesium oxide 400 mg once daily. Denies muscle weakness, muscle cramps, tremors, history of seizures, sensation of irregular heart rate, GI upset. CMP ordered for continued evaluation - patient went for labs today. All questions answered to the patient's satisfaction. Patient demonstrates understanding of diagnosis and treatments discussed. Follow-up in 8 weeks, sooner should any questions/concerns arise. Case discussed with collaborating physician Jen Trejo who has reviewed the assessment/plan. Chart, medications, labs, and vital signs reviewed. Dictation completed with the use of [employer] voice recognition software, prone to medical misidentifications and grammatical errors. All errors are unintentional. Although the practitioner does try to identify and correct errors, some may be present. Please do not hesitate to contact the practitioner for clarification. 10/27/2024 Hypokalemia (ICD-10 - E87.6) Crystal is a 49-year-old female with a PMH of HTN, HLD, asthma, migraines presents today to follow-up. #Asthma: Patient reports she developed asthma due to environmental exposure - continues to experience dyspnea on exertion. Currently taking Symbicort twice daily and albuterol as needed. Not taking Pulmicort as prescribed by elevator supervisor Dr. Esposito. At time of last visit patient was started on Singulair 10 mg once nightly, which she felt wasn't overly helpful, she may discontinue this medication if no clinical improvement. She is encouraged to continue to f/u with pulmonology per their recommendations. #SOB with exertion: Patient reports continued shortness of breath with exertion. States she is unable to walk short distances without becoming short of breath. Reports little symptom improvement with use of Symbicort twice daily and albuterol as needed. Referral to cardiology placed, due to establish care in December. Will order echo to assess for potential cardiac etiologies of symptoms. #HTN: BP in office 128/78. Continue amlodipine 5 mg daily. #HLD: Continue atorvastatin 10 mg once daily. #Migraine: Patient reports history of chronic migraine with aura. Taking amitriptyline 25 mg once daily prophylactically with the sumatriptan 50 mg as needed. States she requires sumatriptan at least 3 times weekly for migraine headaches. Patient has struggled with chronic migraine headaches with aura since childhood. Previously had FMLA that allowed for 3 days/month of intermittent leave due to debilitating migraine symptoms. FMLA updated today. Was due to establish care with [facility] 09/14/2024, unfortunately appointment rescheduled for since March due to lack of provider availability. Patient to follow-up with previous neurologist Angela Webster in February. Due to frequency/severity of symptoms discussed alternative meds such as Nurtec vs Ubrelvy. Patient interested in trying Nurtec, samples provided. She understands to take one 75 mg tablet for headache. May repeat the following day if no symptom improvement. If successful may consider transition to prophylactic treatment with 75 mg every other day. #Hypokalemia/hypomag nesemia: Labs drawn 08/27/24 revealed critically low potassium at 2.9. Patient reports she has had low potassium in the past and was asymptomatic at that time. Patient supplementing with KCl 40mEq every other day, repeat labs WNL at 3.7. Reviewed causes of low potassium including she does use albuterol inhaler frequently which may be contributing to low potassium. She is encouraged to acid/base imbalance/GI losses/albuterol use. In the absence of acid/base imbalance or GI loss, suspect frequent albuterol use may contribute to hypokalemia. Patient is cautioned to only use the medication as needed, she demonstrates understanding. Plan to continue supplementation with 40 mEq every other day and recheck serum potassium in 1 month. All questions answered to the patient's satisfaction. Patient demonstrates understanding of diagnosis and treatments discussed. Follow-up in 4 weeks, sooner should any questions/concerns arise. Case discussed with collaborating physician Jen Trejo who has reviewed the assessment/plan. Chart, medications, labs, and vital signs reviewed. Dictation completed with the use of [employer] voice recognition software, prone to medical misidentifications and grammatical errors. All errors are unintentional. Although the practitioner does try to identify and correct errors, some may be present. Please do not hesitate to contact the practitioner for clarification. 12/17/2024 Hyperlipidemia (ICD-10 - E78.5) Crystal is a 49-year-old female with a PMH of HTN, HLD, asthma/chronic bronchitis, anxiety, migraines that presents today to follow-up. #Anxiety: Patient reports increased anxiety since discontinuation of amitriptyline 25 mg once daily. Denies SI/HI or panic attacks. Has tried alternative SSRIs in the past without significant symptom improvement. Interested in reinitiating treatment with amitriptyline, refill provided. Reviewed proper use and side effects including but not limited to drowsiness, blood pressure changes, syncope, arrhythmias etc. #History of latent TB (w/out treatment) - most recent CXR 07/31/24 unremarkable. #SOB with exertion: Patient continues to struggle with SOB with exertion and long lengths of conversation. Has tried montelukast and many inhalers including but not limited to Advair, Symbicort, Dulera, etc., without significant symptom improvement. Previously followed with elevator supervisor Stephanie Esposito MD. Per note review, PFTs with mild restrictive pattern. High resolution CT of the chest from 01/03/2024 reveals mild basilar scarring vs. atelectasis R>L. On exam patient's voice loses velocity/volume with long lengths of conversation. Lungs CTA. O2 saturation 98%. Patient due to establish care with PVC/get echo in the coming weeks to assess for underlying cardiac etiology. Will also refer to alternative elevator supervisor at the patient's request. #HTN: BP in office 120/88. Continue amlodipine 5 mg daily. #HLD: Continue atorvastatin 10 mg once daily. #Migraine: Taking sumatriptan 50 mg as needed. Prescribed Nurtec for the patient to try, she has not yet tried the medication due to high [id number] cost ($50/month). Nurtec copay coupon provided. She is encouraged to try Nurtec at time of next migraine headache. If Nurtec successfully aborts headache, consider every other day dosing with goal of prophylactic treatment/decreasing need for sumatriptan. Follow up with [facility] in February as scheduled. #Hypokalemia/hypomag nesemia: Most recent labs reveal normal serum K at 3.6. Continue supplementing with KCl 40mEq every other day. All questions answered to the patient's satisfaction. Patient demonstrates understanding of diagnosis and treatments discussed. Follow-up in 8-12 weeks, sooner should any questions/concerns arise. Case discussed with collaborating physician Jen Trejo who has reviewed the assessment/plan. Chart, medications, labs, and vital signs reviewed. Dictation completed with the use of [employer] voice recognition software, prone to medical misidentifications and grammatical errors. All errors are unintentional. Although the practitioner does try to identify and correct errors, some may be present. Please do not hesitate to contact the practitioner for clarification. 12/17/2024 Episodic migraine (ICD-10 - G43.909) Crystal is a 49-year-old female with a PMH of HTN, HLD, asthma/chronic bronchitis, anxiety, migraines that presents today to follow-up. #Anxiety: Patient reports increased anxiety since discontinuation of amitriptyline 25 mg once daily. Denies SI/HI or panic attacks. Has tried alternative SSRIs in the past without significant symptom improvement. Interested in reinitiating treatment with amitriptyline, refill provided. Reviewed proper use and side effects including but not limited to drowsiness, blood pressure changes, syncope, arrhythmias etc. #History of latent TB (w/out treatment) - most recent CXR 07/31/24 unremarkable. #SOB with exertion: Patient continues to struggle with SOB with exertion and long lengths of conversation. Has tried montelukast and many inhalers including but not limited to Advair, Symbicort, Dulera, etc., without significant symptom improvement. Previously followed with elevator supervisor Stephanie Esposito MD. Per note review, PFTs with mild restrictive pattern. High resolution CT of the chest from 01/03/2024 reveals mild basilar scarring vs. atelectasis R>L. On exam patient's voice loses velocity/volume with long lengths of conversation. Lungs CTA. O2 saturation 98%. Patient due to establish care with PVC/get echo in the coming weeks to assess for underlying cardiac etiology. Will also refer to alternative elevator supervisor at the patient's request. #HTN: BP in office 120/88. Continue amlodipine 5 mg daily. #HLD: Continue atorvastatin 10 mg once daily. #Migraine: Taking sumatriptan 50 mg as needed. Prescribed Nurtec for the patient to try, she has not yet tried the medication due to high [id number] cost ($50/month). Nurtec copay coupon provided. She is encouraged to try Nurtec at time of next migraine headache. If Nurtec successfully aborts headache, consider every other day dosing with goal of prophylactic treatment/decreasing need for sumatriptan. Follow up with [facility] in February as scheduled. #Hypokalemia/hypomag nesemia: Most recent labs reveal normal serum K at 3.6. Continue supplementing with KCl 40mEq every other day. All questions answered to the patient's satisfaction. Patient demonstrates understanding of diagnosis and treatments discussed. Follow-up in 8-12 weeks, sooner should any questions/concerns arise. Case discussed with collaborating physician Jen Trejo who has reviewed the assessment/plan. Chart, medications, labs, and vital signs reviewed. Dictation completed with the use of [employer] voice recognition software, prone to medical misidentifications and grammatical errors. All errors are unintentional. Although the practitioner does try to identify and correct errors, some may be present. Please do not hesitate to contact the practitioner for clarification. 12/17/2024 Hypokalemia (ICD-10 - E87.6) Crystal is a 49-year-old female with a PMH of HTN, HLD, asthma/chronic bronchitis, anxiety, migraines that presents today to follow-up. #Anxiety: Patient reports increased anxiety since discontinuation of amitriptyline 25 mg once daily. Denies SI/HI or panic attacks. Has tried alternative SSRIs in the past without significant symptom improvement. Interested in reinitiating treatment with amitriptyline, refill provided. Reviewed proper use and side effects including but not limited to drowsiness, blood pressure changes, syncope, arrhythmias etc. #History of latent TB (w/out treatment) - most recent CXR 07/31/24 unremarkable. #SOB with exertion: Patient continues to struggle with SOB with exertion and long lengths of conversation. Has tried montelukast and many inhalers including but not limited to Advair, Symbicort, Dulera, etc., without significant symptom improvement. Previously followed with elevator supervisor Stephanie Esposito MD. Per note review, PFTs with mild restrictive pattern. High resolution CT of the chest from 01/03/2024 reveals mild basilar scarring vs. atelectasis R>L. On exam patient's voice loses velocity/volume with long lengths of conversation. Lungs CTA. O2 saturation 98%. Patient due to establish care with PVC/get echo in the coming weeks to assess for underlying cardiac etiology. Will also refer to alternative elevator supervisor at the patient's request. #HTN: BP in office 120/88. Continue amlodipine 5 mg daily. #HLD: Continue atorvastatin 10 mg once daily. #Migraine: Taking sumatriptan 50 mg as needed. Prescribed Nurtec for the patient to try, she has not yet tried the medication due to high [id number] cost ($50/month). Nurtec copay coupon provided. She is encouraged to try Nurtec at time of next migraine headache. If Nurtec successfully aborts headache, consider every other day dosing with goal of prophylactic treatment/decreasing need for sumatriptan. Follow up with [facility] in February as scheduled. #Hypokalemia/hypomag nesemia: Most recent labs reveal normal serum K at 3.6. Continue supplementing with KCl 40mEq every other day. All questions answered to the patient's satisfaction. Patient demonstrates understanding of diagnosis and treatments discussed. Follow-up in 8-12 weeks, sooner should any questions/concerns arise. Case discussed with collaborating physician Jen Trejo who has reviewed the assessment/plan. Chart, medications, labs, and vital signs reviewed. Dictation completed with the use of [employer] voice recognition software, prone to medical misidentifications and grammatical errors. All errors are unintentional. Although the practitioner does try to identify and correct errors, some may be present. Please do not hesitate to contact the practitioner for clarification. 10/27/2024 Short of breath on exertion (ICD-10 - R06.02) Crystal is a 49-year-old female with a PMH of HTN, HLD, asthma, migraines presents today to follow-up. #Asthma: Patient reports she developed asthma due to environmental exposure - continues to experience dyspnea on exertion. Currently taking Symbicort twice daily and albuterol as needed. Not taking Pulmicort as prescribed by elevator supervisor Dr. Esposito. At time of last visit patient was started on Singulair 10 mg once nightly, which she felt wasn't overly helpful, she may discontinue this medication if no clinical improvement. She is encouraged to continue to f/u with pulmonology per their recommendations. #SOB with exertion: Patient reports continued shortness of breath with exertion. States she is unable to walk short distances without becoming short of breath. Reports little symptom improvement with use of Symbicort twice daily and albuterol as needed. Referral to cardiology placed, due to establish care in December. Will order echo to assess for potential cardiac etiologies of symptoms. #HTN: BP in office 128/78. Continue amlodipine 5 mg daily. #HLD: Continue atorvastatin 10 mg once daily. #Migraine: Patient reports history of chronic migraine with aura. Taking amitriptyline 25 mg once daily prophylactically with the sumatriptan 50 mg as needed. States she requires sumatriptan at least 3 times weekly for migraine headaches. Patient has struggled with chronic migraine headaches with aura since childhood. Previously had FMLA that allowed for 3 days/month of intermittent leave due to debilitating migraine symptoms. FMLA updated today. Was due to establish care with [facility] 09/14/2024, unfortunately appointment rescheduled for since March due to lack of provider availability. Patient to follow-up with previous neurologist Angela Webster in February. Due to frequency/severity of symptoms discussed alternative meds such as Nurtec vs Ubrelvy. Patient interested in trying Nurtec, samples provided. She understands to take one 75 mg tablet for headache. May repeat the following day if no symptom improvement. If successful may consider transition to prophylactic treatment with 75 mg every other day. #Hypokalemia/hypomag nesemia: Labs drawn 08/27/24 revealed critically low potassium at 2.9. Patient reports she has had low potassium in the past and was asymptomatic at that time. Patient supplementing with KCl 40mEq every other day, repeat labs WNL at 3.7. Reviewed causes of low potassium including she does use albuterol inhaler frequently which may be contributing to low potassium. She is encouraged to acid/base imbalance/GI losses/albuterol use. In the absence of acid/base imbalance or GI loss, suspect frequent albuterol use may contribute to hypokalemia. Patient is cautioned to only use the medication as needed, she demonstrates understanding. Plan to continue supplementation with 40 mEq every other day and recheck serum potassium in 1 month. All questions answered to the patient's satisfaction. Patient demonstrates understanding of diagnosis and treatments discussed. Follow-up in 4 weeks, sooner should any questions/concerns arise. Case discussed with collaborating physician Jen Trejo who has reviewed the assessment/plan. Chart, medications, labs, and vital signs reviewed. Dictation completed with the use of [employer] voice recognition software, prone to medical misidentifications and grammatical errors. All errors are unintentional. Although the practitioner does try to identify and correct errors, some may be present. Please do not hesitate to contact the practitioner for clarification. Plan Of Treatment Pending Test Test Name Order Date Echocardiogram 10/27/2024 Hemoglobin A1c 07/02/2024 MALIK Comprehensive Panel 07/02/2024 ESR 07/02/2024 CRP, HIGH SENSITIVITY 07/02/2024 FERRITIN 07/02/2024 IRON & TIBC 07/02/2024 LIPID PANEL 07/02/2024 Potassium Level 08/27/2024 CBC with Differential 07/02/2024 MAGNESIUM 07/02/2024 COMPREHENSIVE METABOLIC PANEL 10/27/2024 BASIC METABOLIC PANEL 12/17/2024 MAGNESIUM 12/17/2024 TSH W/REFLEX TO FT4 07/02/2024 VITAMIN D,25-OH,TOTAL,IA 07/02/2024 Comp. Metabolic Panel [phone] 2023 Insurance Providers Payer Name Payer Address Payer Phone Subscriber Number Group Number Insured Name Patient Relationship to Insured Coverage Start Date Coverage End Date [employer] [address] [address] [place] [address] [id number] [phone] Crystal Moreira Self - patient is the insured Medical (General) History Medical History History ICD Code Episodic migraine G43.909 Hyperlipidemia, unspecified hyperlipidem ia type E78.5 Essential hypertension I10 Moderate persistent asthma without compl ication J45.40 Rash and nonspecific skin eruption R21
== END 2025-07-13 14:55 | disposition home or self-care (01) ==
LOC: HO.HSMS 12:00
PROVIDERS: Visit Provider Nurse Practitioner Family
DX: G43.109 Migraine with aura, not intractable, without status migrainosus (principal); G43.829 Menstrual migraine, not intractable, without status migrainosus
CPT/HCPCS: 99214